=== PATIENT | female | born 1960 | race Caucasian/White ===

== ENCOUNTER 2016-05-16 23:35 | Emergency (ER) | payer OTHER ==
[2016-05-16 23:42] VITALS: BMI 35.2
[2016-05-16 23:46] VITALS: RESP 18
--- NOTE | 2016-05-16 23:50 | ED PDOC ---
Arrival/HPI - General Chief Complaint: Abdominal Pain Time Seen by Provider: 05/16/16 23:37 Historian: Patient, Family (daughter) - History of Present Illness Narrative History of Present Illness (Text): 05/16/16 23:50 55 year old female patient, whose past medical history includes diabetes, hypertension, hypercholesterolemia, and breast cancer currently in remission, who presents to the emergency department brought by her daughter complaining of suprapubic discomfort. Patient states she just returned from [place] today where she had a Cooper catheter placed for possible urinary retention 3 days ago. Patient describes suprapubic discomfort possibly related to the indwelling catheter. Patient denies any fever, chills, nausea, vomiting, diarrhea, back pain, neck pain, headache, dizziness, or any other complaints. PMD: Dr. Paulino Beebe Time/Duration: < week (3 days) Symptom Onset: Gradual Symptom Course: Unchanged Quality: Fullness Activities at Onset: Rest Modifying Factors (Text): None Past Medical History - Provider Review Nursing Documentation Reviewed: Yes - Infectious Disease Hx of Infectious Diseases: None - Tetanus Immunization Tetanus Immunization: Unknown - Reproductive Menopause: Yes - Cardiac Hx Cardiac Disorders: Yes Hx Hypertension: Yes - Pulmonary Hx Respiratory Disorders: No - Neurological Hx Neurological Disorder: No - HEENT Hx HEENT Disorder: No - Renal Hx Renal Disorder: No - Endocrine/Metabolic Hx Endocrine Disorders: Yes Hx Diabetes Mellitus Type 2: Yes - Hematological/Oncological Hx Blood Disorders: Yes Hx Cancer: Yes (stage 1 l breast RADIATION) - Integumentary Hx Dermatological Disorder: No - Musculoskeletal/Rheumatological Hx Musculoskeletal Disorders: No - Gastrointestinal Hx Gastrointestinal Disorders: No - Genitourinary/Gynecological Hx Genitourinary Disorders: No - Psychiatric Hx Psychophysiologic Disorder: No - Surgical History Hx Breast Biopsy: Yes (LOCAL ANESTHESIA. 07/04/13 EXC LEFT BREAST MASS) Hx Mastectomy: Yes (LEFT BREAST LUMPECTOMY) - Anesthesia Hx Anesthesia: Yes Hx Anesthesia Reactions: No Hx Malignant Hyperthermia: No Family/Social History - Physician Review Nursing Documentation Reviewed: Yes Family/Social History: Unknown Family HX Smoking Status: Never Smoked Hx Alcohol Use: No Allergies/Home Meds Allergies/Adverse Reactions: Allergies Penicillins Allergy (Verified 12/18/15 11:45) Home Medications: Home Meds Medication Instructions Recorded Confirmed GlipiZIDE [Glucotrol] 5 mg PO BID 06/07/13 01/13/16 Olmesartan Medoxomil [Benicar] 40 mg PO DAILY 06/29/13 01/13/16 Simvastatin 40 mg PO DAILY 06/29/13 01/13/16 Sitagliptin Phosphate [Januvia] 150 mg PO BID 10/04/13 01/13/16 Olmesartan [BenicarNf] 20 mg PO 01/13/16 Review of Systems - Physician Review All systems were reviewed & negative as marked: Yes - Review of Systems Respiratory: absent: SOB Cardiovascular: absent: Chest Pain Gastrointestinal: Abdominal Pain Genitourinary Female: Other (+urinary retention) Skin: absent: Rash Physical Exam Vital Signs Reviewed: Yes Vital Signs Temp Pulse Resp BP Pulse Ox 05/17/16 02:50 82 18 120/76 98 05/16/16 23:42 97.3 F L 77 18 117/79 99 Temperature: Afebrile Blood Pressure: Normal Pulse: Regular Respiratory Rate: Normal Appearance: Positive for: Well-Appearing, Non-Toxic, Comfortable Pain Distress: None Mental Status: Positive for: Alert and Oriented X 3 - Systems Exam Head: Present: Atraumatic, Normocephalic Pupils: Present: PERRL Extroacular Muscles: Present: EOMI Conjunctiva: Present: Normal Mouth: Present: Moist Mucous Membranes Neck: Present: Normal Range of Motion Respiratory/Chest: Present: Clear to Auscultation, Good Air Exchange. No: Respiratory Distress, Accessory Muscle Use Cardiovascular: Present: Regular Rate and Rhythm, Normal S1, S2. No: Murmurs Abdomen: Present: Tenderness (suprapubic tenderness), Normal Bowel Sounds. No: Distention, Peritoneal Signs Back: Present: Normal Inspection Upper Extremity: Present: Normal Inspection. No: Cyanosis, Edema Lower Extremity: Present: Normal Inspection. No: Edema Neurological: Present: GCS=15, CN II-XII Intact, Speech Normal Skin: Present: Warm, Dry, Normal Color. No: Rashes Psychiatric: Present: Alert, Oriented x 3, Normal Insight, Normal Concentration Medical Decision Making ED Course and Treatment: 05/16/16 23:50 Impression: 55 year old female with suprapubic pain. Differential Diagnosis included but are not limited to: Urinary retention Vs. UTI Plan: -- Labs -- Reassess and disposition Prior Visits: Notes and results from previous visits were reviewed. On 10/04/13 patient came in complaining of L. sided upper chest pain that feels like pressure. Patient was admitted for further evaluation. Progress Notes: 05/17/16 00:25 Patient reports complete relief following immediate Cooper removal. Pt was able to urinate on her own with difficulty. 05/17/16 03:18 Uneventful period of observation in ED following Cooper removal. No recurrence of symptoms. On re-evaluation, the patient feels better and is in no acute distress. I have discussed the results and plan with the patient, who expresses understanding. Patient in agreement with plan to discharged home. Patient is stable for discharge. Patient was instructed to follow up with physician/clinic in 1-2 days or return if symptoms worsen or new concerning symptoms arise. - Lab Interpretations Lab Results: 05/17/16 00:41 05/17/16 00:41 Lab Results 05/17/16 00:41: WBC 7.7, RBC 3.95, Hgb 10.9 L, Hct 32.7 L, MCV 82.8, MCH 27.6, MCHC 33.3, RDW 15.9 H, Plt Count 260, MPV 9.9, Sodium 133, Potassium 4.4, Chloride 99, Carbon Dioxide 26, Anion Gap 12, BUN 13, Creatinine 0.9, Est GFR ( Amer) > 60, Est GFR (Non-Af Amer) > 60, Random Glucose 252 H, Calcium 9.0 05/17/16 00:06: Urine Color Yellow, Urine Appearance Clear, Urine pH 6.5, Ur Specific [place] <= 1.005, Urine Protein Negative, Urine Glucose (UA) Negative, Urine Ketones Negative, Urine Blood Trace-lysed H, Urine Nitrate Negative, Urine Bilirubin Negative, Urine Urobilinogen 0.2, Ur Leukocyte Esterase Negative , Urine RBC 0 - 2, Urine WBC 0 - 2, Ur Epithelial Cells 0 - 2, Urine Bacteria Rare I have reviewed the lab results: Yes - Scribe Statement The provider has reviewed the documentation as recorded by the Scribwander Mcclellan, training with Lakeisha Couch All medical record entries made by the Scribe were at my direction and personally dictated by me. I have reviewed the chart and agree that the record accurately reflects my personal performance of the history, physical exam, medical decision making, and the department course for this patient. I have also personally directed, reviewed, and agree with the discharge instructions and disposition. Disposition/Present on Arrival - Present on Arrival Any Indicators Present on Arrival: No History of DVT/PE: No History of Uncontrolled Diabetes: No Urinary Catheter: No History of Decub. Ulcer: No History Surgical Site Infection Following: None - Disposition Have Diagnosis and Disposition been Completed?: Yes Diagnosis: Complication, blocked Cooper catheter Disposition: HOME/ ROUTINE Disposition Time: 03:17 Patient Plan: Discharge Patient Problems: Current Active Problems Problem Status Diagnosed Complication, blocked Cooper catheter Acute Condition: GOOD Additional Instructions: Follow up with your doctor this week Referrals: Ramya Beebe MD [Primary Care Provider] - Follow up with primary
[2016-05-17 00:30] VITALS: TEMP 97.3
[2016-05-17 00:58] LABS: HEMATOCRIT 32.7 % (36.0-48.0); MEAN CELL VOLUME 82.8 fL (80.0-105.0); MEAN CORPUSCULAR HEMOGLOBIN 27.6 pg (25.0-35.0); MEAN CORPUSCULAR HGB CONC 33.3 g/dl (31.0-37.0); MEAN PLATELET VOLUME 9.9 fl (7.0-11.0); RED CELL DISTRIBUTION WIDTH 15.9 % (11.5-14.5); WHITE BLOOD COUNT 7.7 [, 10^3/ul] (4.5-11.0)
[2016-05-17 01:22] LABS: BLOOD UREA NITROGEN 13 mg/dL (7-21); CARBON DIOXIDE 26 mmol/L (21-33); CHLORIDE 99 mmol/L (98-107); GFR AFRICAN-AMERICAN > 60; GLUCOSE,RANDOM 252 mg/dL (70-110); POTASSIUM 4.4 mmol/L (3.6-5.0); SODIUM 133 mmol/L (132-148)
[2016-05-17 02:13] LABS: PH,URINE 6.5 (4.7-8.0); URINE BILIRUBIN NEGATIVE (NEGATIVE); URINE BLOOD TRACE-LYSED (NEGATIVE); URINE GLUCOSE (UA) NEGATIVE (NEGATIVE); URINE KETONE NEGATIVE (NEGATIVE); URINE LEUKOCYTE ESTERASE NEGATIVE Leu/uL (NEGATIVE); URINE PROTEIN NEGATIVE mg/dL (<30 mg/dL); URINE UROBILINOGEN 0.2 E.U./dL (<1 E.U./dL)
[2016-05-17 02:18] LABS: URINE APPEARANCE CLEAR (CLEAR); URINE COLOR YELLOW (YELLOW)
[2016-05-17 02:25] LABS: URINE BACTERIA RARE (NEG); URINE EPITHELIAL CELLS 0 - 2 /hpf (0-5); URINE RBC 0 - 2 /hpf (0-2); URINE WBC 0 - 2 /hpf (0-6)
[2016-05-17 02:50] VITALS: BP 120/76; PULSE 82; O2SAT 98
== END 2016-05-17 03:20 | disposition home or self-care (01) ==
LOC: ED 23:35
DX: T83.098A Other mechanical complication of other urinary catheter, initial encounter (principal); Y84.8 Other medical procedures as the cause of abnormal reaction of the patient, or of later complication, without mention of misadventure at the time of the procedure; Y92.89 Other specified places as the place of occurrence of the external cause; I10 Essential (primary) hypertension

== ENCOUNTER 2017-07-02 17:14 | Inpatient (IN) | payer OTHER ==
[2017-07-02 17:15] VITALS: BMI 35.6
[2017-07-02] MEDS ORDERED: Morphine 4 mg/ml ISec IVP STA (17:32)
[2017-07-02 18:22] LABS: BASO # 0.02 K/mm3 (0.0-2.0); BASO % 0.2 % (0.0-3.0); EOS # 0.4 (0.0-0.7); EOS % 4.8 % (1.5-5.0); GRAN # 4.56 (1.4-6.5); GRAN % 49.7 % (50.0-68.0); HEMOGLOBIN 12.9 g/dL (12.0-16.0); LYMPH # 3.7 (1.2-3.4); LYMPH % 40.6 % (22.0-35.0); MEAN CELL VOLUME 83.8 fl (80.0-105.0); MEAN CORPUSCULAR HEMOGLOBIN 28.7 pg (25.0-35.0); MEAN CORPUSCULAR HGB CONC 34.2 g/dl (31.0-37.0); MEAN PLATELET VOLUME 10.9 fl (7.0-11.0); MONO # 0.4 (0.1-0.6); MONO % 4.7 % (1.0-6.0); RBC 4.5 10^6/uL (3.5-6.1); RED CELL DISTRIBUTION WIDTH 14.7 % (11.5-14.5); WHITE BLOOD COUNT 9.2 10^3/ul (4.5-11.0)
[2017-07-02 18:25] LABS: ALB/GLOB RATIO 1.2 (1.1-1.8); ALBUMIN 4.1 g/dL (3.0-4.8); ALT/SGPT 26 U/L (7-56); AST/SGOT 29 U/L (14-36); BLOOD UREA NITROGEN 20 mg/dL (7-21); CALCIUM 10.3 mg/dL (8.4-10.5); GFR AFRICAN-AMERICAN > 60; GFR NON-AFRICAN AMERICAN > 60
[2017-07-02 18:35] LABS: INR 0.95 (0.93-1.08); PARTIAL THROMBOPLASTIN TIME 25.2 Seconds (25.1-36.5); PROTHROMBIN TIME 10.8 SECONDS (9.4-12.5)
[2017-07-02 18:36] LABS: PH,URINE 6.5 (4.7-8.0); URINE BILIRUBIN NEGATIVE (NEGATIVE); URINE BLOOD NEGATIVE (NEGATIVE); URINE GLUCOSE (UA) NEGATIVE (NEGATIVE); URINE LEUKOCYTE ESTERASE NEGATIVE Leu/uL (NEGATIVE); URINE PROTEIN NEGATIVE mg/dL (<30 mg/dL); URINE UROBILINOGEN 0.2 E.U./dL (<1 E.U./dL)
[2017-07-02 18:37] LABS: URINE APPEARANCE CLEAR (CLEAR); URINE COLOR STRAW (YELLOW)
--- NOTE | 2017-07-02 19:03 | MRI ---
PROCEDURE: MR LUMBAR SPINE WITHOUT CONTRAST HISTORY: Back pain COMPARISON: None available. TECHNIQUE: Multiecho multiplanar sequences were performed through the lumbar spine without the use of intravenous contrast. FINDINGS: No acute compression fractures no retropulsed fragments. Vertebral bodies exhibit normal stature. Marrow signal normal. Minimal anterior subluxation L5 over S1. . Vertebral bodies otherwise exhibit normal alignment. Facets normally aligned. T12-L1: No disc herniation, spinal canal stenosis or neural foraminal narrowing. L1-2: No disc herniation, spinal canal stenosis or neural foraminal narrowing. L2-3: No disc herniation, spinal canal stenosis or neural foraminal narrowing. L3-4: There is adequate disc height. Minor age related disc desiccation. No minor the shallow bilateral foraminal disc bulging changes are present. Facet joints do appear mild to moderately hypertrophic. . Central canal appears adequate. Exit foramina are also adequate. L4-5: . There is relatively adequate disc height however mild disc desiccation with an associated annular fissure seen along the central posterior margin of the disc. Disc results in mild compressive effects on the ventral surface of the thecal sac more so on the right side with mild bilateral lateral recess narrowing again more so on the right. Central canal is marginal to slightly narrowed. Facet joints are mildly hypertrophic. Proximal exit foramina are marginal to slightly narrowed bilaterally. . L5-S1: There is mild disc desiccation and disc space narrowing along the posterior disc margin in addition to the aforementioned minimal anterior subluxation. . Slight uncovering of the posterior superior surface of the disc with minimal broad-based bulge of the posterior annulus. The the disc flattens the ventral surface of the thecal sac and results in mild bilateral lateral recess narrowing. The central canal is mildly narrowed as well. Facets are hypertrophic and flavum buckled contributing to the the bilateral lateral recess stenosis. The exit foramina are narrowed bilaterally. OTHER FINDINGS: Conus terminates at approximately the upper L1 level. IMPRESSION: Mild multilevel degenerative spondylosis most notably affecting the L5-S1 and L4-L5 levels as described.
--- NOTE | 2017-07-02 19:17 | ED PDOC ---
Arrival/HPI - General Chief Complaint: Back Pain Time Seen by Provider: 07/02/17 17:19 Historian: Patient - History of Present Illness Narrative History of Present Illness (Text): 07/02/17 19:14 57-year-old female presents today sent in by Dr. Beebe for intractable back pain. Patient with a history of breast cancer and uterine cancer presents today with a one-week history of worsening back pain. Patient denies chest pain or shortness of breath. She denies abdominal pain. She denies nausea vomiting diarrhea or constipation. Patient denies bladder or bowel incontinence. Patient denies saddle paresthesias. Patient is complaining of a tingling sensation in the right foot. Patient states she feels severe pain in the right lower back and hip radiating into the right thigh along the posterior aspect. Patient states she's been taking multiple medications for pain at home without improvement. Patient states she was seen by a primary care physician today and was sent into the emergency room for further evaluation. Time/Duration: 1 week Symptom Onset: Gradual Symptom Course: Worsening Past Medical History - Provider Review Nursing Documentation Reviewed: Yes - Travel History Have you recently traveled outside [place] w/in the past 3 mons?: No - Infectious Disease Hx of Infectious Diseases: None - Tetanus Immunization Tetanus Immunization: Unknown - Cardiac Hx Cardiac Disorders: Yes Hx Hypertension: Yes - Pulmonary Hx Respiratory Disorders: No - Neurological Hx Neurological Disorder: No - HEENT Hx HEENT Disorder: No - Renal Hx Renal Disorder: No - Endocrine/Metabolic Hx Endocrine Disorders: Yes Hx Diabetes Mellitus Type 2: Yes - Hematological/Oncological Hx Blood Disorders: Yes Hx Cancer: Yes (stage 1 l breast RADIATION) - Integumentary Hx Dermatological Disorder: No - Musculoskeletal/Rheumatological Hx Musculoskeletal Disorders: No - Gastrointestinal Hx Gastrointestinal Disorders: No - Genitourinary/Gynecological Hx Genitourinary Disorders: No - Psychiatric Hx Psychophysiologic Disorder: No Hx Substance Use: No - Surgical History Hx Breast Biopsy: Yes (LOCAL ANESTHESIA. 07/04/13 EXC LEFT BREAST MASS) Hx Mastectomy: Yes (LEFT BREAST LUMPECTOMY) - Anesthesia Hx Anesthesia: Yes Hx Anesthesia Reactions: No Hx Malignant Hyperthermia: No Family/Social History - Physician Review Nursing Documentation Reviewed: Yes Family/Social History: Unknown Family HX Smoking Status: Never Smoked Hx Alcohol Use: No Hx Substance Use: No Allergies/Home Meds Allergies/Adverse Reactions: Allergies Penicillins Allergy (Verified 12/18/15 11:45) Home Medications: Home Meds Medication Instructions Recorded Confirmed GlipiZIDE [Glucotrol] 5 mg PO BID 06/07/13 07/02/17 Simvastatin 40 mg PO DAILY 06/29/13 07/02/17 Olmesartan [BenicarNf] 20 mg PO DAILY 01/13/16 07/02/17 Aspirin [Aspirin Chewable] 1 tab PO DAILY 07/02/17 07/02/17 Sitagliptin Phos/Metformin HCl 1 tab PO BID 07/02/17 07/02/17 [Janumet 50-1,000 mg Tablet] Tamoxifen Citrate [Tamoxifen 1 tab PO DAILY 07/02/17 07/02/17 Citrate] Review of Systems - Review of Systems Constitutional: absent: Fatigue, Fevers Respiratory: absent: SOB, Cough Cardiovascular: absent: Chest Pain, Palpitations Gastrointestinal: absent: Abdominal Pain, Constipation, Diarrhea, Nausea, Vomiting Genitourinary Female: absent: Dysuria, Frequency, Hematuria, Urine Output Changes, Vaginal Bleeding, Vaginal Discharge Musculoskeletal: Arthralgias, Back Pain. absent: Neck Pain Skin: absent: Rash, Pruritis Neurological: absent: Headache, Dizziness Psychiatric: absent: Anxiety, Depression, Suicidal Ideation Physical Exam Vital Signs Reviewed: Yes Vital Signs Temp Pulse Resp BP Pulse Ox 07/02/17 17:14 97.7 F 88 18 156/82 H 98 Temperature: Afebrile Blood Pressure: Hypertensive Pulse: Regular Respiratory Rate: Normal Appearance: Positive for: Well-Appearing, Non-Toxic, Uncomfortable Pain Distress: None Mental Status: Positive for: Alert and Oriented X 3 - Systems Exam Head: Present: Atraumatic Mouth: Present: Moist Mucous Membranes Neck: Present: Normal Range of Motion Respiratory/Chest: Present: Clear to Auscultation, Good Air Exchange. No: Respiratory Distress, Accessory Muscle Use Cardiovascular: Present: Regular Rate and Rhythm, Normal S1, S2. No: Murmurs Abdomen: No: Tenderness, Distention, Peritoneal Signs, Rebound, Guarding Back: Present: Normal Inspection, Midline Tenderness, Paraspinal Tenderness Upper Extremity: Present: Normal Inspection, Normal ROM Lower Extremity: Present: NORMAL PULSES, Swelling, Neurovascularly Intact, Capillary Refill < 2 s. No: CALF TENDERNESS, Tenderness, Erythema, Deformity Neurological: Present: GCS=15, Speech Normal Skin: Present: Warm, Dry, Normal Color. No: Rashes Psychiatric: Present: Alert, Oriented x 3 Medical Decision Making ED Course and Treatment: 07/02/17 19:20 57-year-old female with a one-week history of worsening right sided back pain radiating into the right leg sent in by Dr. Beebe for admission for intractable pain CBC within normal limits CMP within normal limits Urinalysis within normal limits Patient presents with a CAT scan of the lumbar spine which shows a large disc bulge with facet degeneration and thickening of the ligamentum flavum at L4-L5 causing moderate to severe narrowing of the central spinal canal and both lateral recesses. MRI of the lumbar spine was ordered MRI of lumbar spine:FINDINGS: No acute compression fractures no retropulsed fragments. Vertebral bodies exhibit normal stature. Marrow signal normal. Minimal anterior subluxation L5 over S1. . Vertebral bodies otherwise exhibit normal alignment. Facets normally aligned. T12-L1: No disc herniation, spinal canal stenosis or neural foraminal narrowing. L1-2: No disc herniation, spinal canal stenosis or neural foraminal narrowing. L2-3: No disc herniation, spinal canal stenosis or neural foraminal narrowing. L3-4: There is adequate disc height. Minor age related disc desiccation. No minor the shallow bilateral foraminal disc bulging changes are present. Facet joints do appear mild to moderately hypertrophic. Central canal appears adequate. Exit foramina are also adequate. L4-5: . There is relatively adequate disc height however mild disc desiccation with an associated annular fissure seen along the central posterior margin of the disc. Disc results in mild compressive effects on the ventral surface of the thecal sac more so on the right side with mild bilateral lateral recess narrowing again more so on the right. Central canal is marginal to slightly narrowed. Facet joints are mildly hypertrophic. Proximal exit foramina are marginal to slightly narrowed bilaterally. . L5-S1: There is mild disc desiccation and disc space narrowing along the posterior disc margin in addition to the aforementioned minimal anterior subluxation. . Slight uncovering of the posterior superior surface of the disc with minimal broad-based bulge of the posterior annulus. The the disc flattens the ventral surface of the thecal sac and results in mild bilateral lateral recess narrowing. The central canal is mildly narrowed as well. Facets are hypertrophic and flavum buckled contributing to the the bilateral lateral recess stenosis. The exit foramina are narrowed bilaterally. OTHER FINDINGS: Conus terminates at approximately the upper L1 level. IMPRESSION: Mild multilevel degenerative spondylosis most notably affecting the L5-S1 and L4 -L5 levels as described. case was discussed with dr. beebe; will admit for intractable back pain; she is requesting neurosurgery consultation. i discussed all results in depth with patient. impression;intractable back pain admit to med/surg - Lab Interpretations Lab Results: 07/02/17 18:00 07/02/17 18:00 Lab Results 07/02/17 18:29: Urine Color Straw, Urine Appearance Clear, Urine pH 6.5, Ur Specific [place] <= 1.005, Urine Protein Negative, Urine Glucose (UA) Negative, Urine Ketones Negative, Urine Blood Negative, Urine Nitrate Negative, Urine Bilirubin Negative, Urine Urobilinogen 0.2, Ur Leukocyte Esterase Negative 07/02/17 18:00: WBC 9.2, RBC 4.50, Hgb 12.9, Hct 37.7, MCV 83.8, MCH 28.7, MCHC 34.2, RDW 14.7 H, Plt Count 240, MPV 10.9, Gran % 49.7 L, Lymph % (Auto) 40.6 H , [place] % (Auto) 4.7, Eos % (Auto) 4.8, Baso % (Auto) 0.2, Gran # 4.56, Lymph # ( Auto) 3.7 H, [place] # (Auto) 0.4, Eos # (Auto) 0.4, Baso # (Auto) 0.02 07/02/17 18:00: Sodium 141, Potassium 4.8, Chloride 102, Carbon Dioxide 26, Anion Gap 18, BUN 20, Creatinine 0.8, Est GFR ( Amer) > 60, Est GFR (Non- Af Amer) > 60, Random Glucose 133 H, Calcium 10.3, Total Bilirubin 0.2, AST 29, ALT 26, Alkaline Phosphatase 81, Total Protein 7.4, Albumin 4.1, Globulin 3.3, Albumin/Globulin Ratio 1.2 07/02/17 18:00: PT 10.8, INR 0.95, APTT 25.2 - RAD Interpretation Radiology Orders: 07/02/17 17:37 SPINAL CANAL LUMBAR W/O CONT [MRI] Stat - Medication Orders Current Medication Orders: Discontinued Medications Docusate Sodium (Colace) 100 mg PO STAT STA Stop: 07/02/17 17:33 Last Admin: 07/02/17 17:48 Dose: 100 mg Last Bowel Movement Document 07/02/17 17:48 LA (Rec: 07/02/17 17:48 LA [id number]) Last Bowel Movement Last Bowel Movement 07/01/17 Morphine Sulfate (Morphine) 4 mg IVP STAT STA Stop: 07/02/17 17:33 Last Admin: 07/02/17 17:48 Dose: 4 mg MAR Pain Assessment Document 07/02/17 17:48 LA (Rec: 07/02/17 17:49 LA [id number]) Pain Reassessment Is this a pain reassessment? No Sleep Is patient sleeping during reassessment? No Presence of Pain Presence of Pain Yes Pain Scale Used Pain Scale Used Numeric Location Left, Right or Bilateral Right Upper or Lower Lower Pain Location Body Site Back Leg Description Description Constant Intensity of Pain at present 10 Pain Behavior Guarding IVP Administration Document 07/02/17 17:48 LA (Rec: 07/02/17 17:49 LA [id number]) Charges for Administration # of IVP Administrations 1 Ondansetron HCl (Zofran Inj) 4 mg IVP STAT STA Stop: 07/02/17 17:33 Last Admin: 07/02/17 17:49 Dose: 4 mg IVP Administration Document 07/02/17 17:49 LA (Rec: 07/02/17 17:49 LA [id number]) Charges for Administration # of IVP Administrations 1 Disposition/Present on Arrival - Present on Arrival Any Indicators Present on Arrival: No History of DVT/PE: No History of Uncontrolled Diabetes: No Urinary Catheter: No History of Decub. Ulcer: No History Surgical Site Infection Following: None - Disposition Have Diagnosis and Disposition been Completed?: Yes Diagnosis: Intractable back pain Disposition: HOSPITALIZED Disposition Time: 19:00 Patient Plan: Admission, Observation Condition: GOOD Referrals: Ramya Beebe MD [Primary Care Provider] - Follow up with primary
[2017-07-03] MEDS: Insulin Reg-LOW-Coverage SC SCH ×4 (08:15→22:18)
[2017-07-03] MEDS: Lidocaine 5% Patch TOP SCH (09:49)
[2017-07-03] MEDS: MethylPREDNISolone 40 mg Vial IVP SCH ×2 (09:50→22:37)
[2017-07-03] MEDS ORDERED: POLYETHYLENE GLYCOL 3350 17 GM/Dose PACKET PO ONE (16:20)
[2017-07-04] MEDS: Insulin Reg-LOW-Coverage SC SCH ×3 (08:43→16:52)
[2017-07-04] MEDS: MethylPREDNISolone 40 mg Vial IVP SCH ×2 (10:44→21:40)
[2017-07-04] MEDS: POLYETHYLENE GLYCOL 3350 17 GM/Dose PACKET PO SCH (10:47)
[2017-07-04] MEDS: Lidocaine 5% Patch TOP SCH (10:47)
[2017-07-04] MEDS: Insulin Reg-MEDIUM-Coverage SC SCH (21:39)
--- NOTE | 2017-07-04 22:43 | PN ---
DATE: 07/04/2017 SUBJECTIVE: The patient was seen and examined at the bedside, looking comfortable. Pain is a little bit better, but did not have bowel movement. No nausea or vomiting. No headache. No chest pain. No palpitation. PHYSICAL EXAMINATION: VITAL SIGNS: Temperature 97.9, pulse 53, blood pressure 143/92, respiratory rate 20. HEENT: Head normocephalic, atraumatic. Eyes PERRLA. Extraocular muscles intact. Conjunctivae clear. Nose patent. Mucous membranes moist. NECK: Supple. No carotid bruit. No JVD or thyromegaly. CHEST: Bilaterally symmetrical. HEART: S1 and S2 positive. LUNGS: Clear to auscultation. ABDOMEN: Soft. Bowel sounds positive. No organomegaly. EXTREMITIES: No edema. No cyanosis. NEUROLOGIC: The patient is awake and alert. Moving all four extremities. No focal deficit. MEDICATIONS: Aspirin, Cozaar, Duragesic patch, metformin, Glucotrol, insulin, Januvia, lidocaine, Lipitor, MiraLax, tamoxifen, Pepcid, Solu-Medrol tapering dose, Toradol, Tylenol, and Zofran. LABORATORY DATA: White blood cells 9.2, hemoglobin 12.9, hematocrit 37.7, platelets 240. Glucose 230, 389, 279, and 317. ASSESSMENT AND PLAN: Ms. Sandra Nicolas is a 57-year-old female with uncontrolled diabetes mellitus, getting tapering dose of steroids, obesity, intractable back pain, failed outpatient treatment. The patient was using naproxen and Flexeril but nothing was helping. Tingling sensation in the legs, especially right foot and leg, numbness of the leg, but is improving. Lumbosacral radiculopathy, history of stage I breast cancer status post radiation, left breast lumpectomy, hypertension, hypercholesterolemia. Did MRI of lumbosacral region. Mild multilevel degenerative spondylosis, most notably affecting the L5-S1 and L4-L5 level. There is mild disk desiccation and disk space narrowing. GI and deep venous thrombosis prophylaxis. Getting tapering dose of steroids. Seen by neurosurgeon, Recommended physical therapy. Ramya Beebe MD [facility] # [id number] [place]
[2017-07-05 07:34] LABS: HEMOGLOBIN 11.7 g/dL (12.0-16.0); MEAN CELL VOLUME 84.2 fl (80.0-105.0); MEAN CORPUSCULAR HEMOGLOBIN 27.7 pg (25.0-35.0); MEAN CORPUSCULAR HGB CONC 32.9 g/dl (31.0-37.0); MEAN PLATELET VOLUME 11.2 fl (7.0-11.0); RBC 4.23 10^6/uL (3.5-6.1); RED CELL DISTRIBUTION WIDTH 14.9 % (11.5-14.5); WHITE BLOOD COUNT 10.9 10^3/ul (4.5-11.0)
[2017-07-05 07:45] LABS: IRON 64 ug/dL (45-180)
[2017-07-05 07:53] LABS: BLOOD UREA NITROGEN 41 mg/dL (7-21); CALCIUM 9.7 mg/dL (8.4-10.5); GFR AFRICAN-AMERICAN > 60; GFR NON-AFRICAN AMERICAN 57; HDL CHOLESTEROL 84 mg/dL (29-60)
[2017-07-05 07:56] LABS: % IRON SATURATION 16 % (20-55); LDL CHOLESTEROL 66 mg/dL (0-129); TOTAL IRON BINDING CAPACITY 395 ug/dL (265-497)
--- NOTE | 2017-07-05 08:07 | CON ---
DATE: 07/03/2017 REASON FOR CONSULTATION: Intractable back pain. HISTORY OF PRESENT ILLNESS: Patient is a 57-year-old young woman who states that a week ago, she had the acute onset of pain in her lower back. She denies any past history of back issues. She does not recall any trauma or any excess activity leading up to the onset of this pain. It is strictly on the right side around the lower back/buttock region. Occasionally, she gets some radiation into the upper thigh on the outside and the back of it, but not in front of her leg. She denies any loss of bowel or bladder control. She denies any symptoms whatsoever in the left leg. She was unable to manage the pain as outpatient, and therefore was brought to the emergency room yesterday and admitted. She had a CAT scan, and subsequently an MRI done. She states she feels a little better with the medications that she is getting, but when the medicine wears off, then the symptoms recur. PAST MEDICAL HISTORY: Significant for cardiovascular disease with hypertension. She is type 2 diabetic, non-insulin dependent. She also has a history of stage I breast cancer in the left breast. MEDICATIONS: Are as listed on the chart. ALLERGIES: SHE IS ALLERGIC TO PENICILLIN. PAST SURGICAL HISTORY: Significant for lumpectomy done in 06/2013 for the left breast. She had subsequent radiation therapy, but did not need any other adjuvant treatments, and she states everything has been fine for the last 4 years. REVIEW OF SYSTEMS: She is Hinduism, so she has never smoked and never taken any alcohol. PHYSICAL EXAMINATION: She is very tender to palpation around the right sciatic notch and lower lumbosacral region. Straight leg raising on the right side at about 60 degrees or so gives her right-sided low back pain. No leg symptoms. Straight leg raising is on the left side to at least 80 degrees with no complaints. She is able to move both lower extremities actively. She states her sensation is a little different to light touch over the dorsum of right foot compared to the left. She does complain of some tingling in all the toes of her right foot. Sensation to light touch in the medial and lateral aspects of the ankle, however, are the same. She has excellent strength throughout muscle testing of both legs. Reflexes are depressed, but symmetrically so. She has fair distal pulses. No clonus present. Babinski showed toes downgoing. MRI was reviewed and it shows what appears to be a large annular tear in the L4-L5 disk. There is facet hypertrophy with some thickening of ligamentum resulting in foraminal narrowing, though it is more on the left than the right. At L5-S1, she has some disk desiccation and a minimal grade I spondylolisthesis of L5 and S1. Again, she has some facet hypertrophy, thickened ligamentum resulting in some lateral recess and foraminal narrowing. There is disk desiccation at the L3-L4 disk, but it maintains good height and disk above that looks okay. IMPRESSION: My impression is that most probably internal derangement of L4-L5 disk with some stenosis of L4-L5 and L5-S1 along with a minimal spondylolisthesis of L5-S1. Given the fact this patient has never had an issue with her back before and the history now is only for a week, I would certainly treat this conservatively initially. I would get her physical therapy and let them do modality treatments and mobilize her as her pain allows. She does have some radiculitis in terms of complaints of the tingling and pain in the upper thigh, but motor-rojas, she is completely intact, so again there is no khan to do anything surgically. I would think about trying to get her off the steroids if they are only being given for back pain as that is obviously causing a subsequent rise in her sugars and now she is on insulin, and there has not been any evidence showing any significant improvement with the use of steroids compared to the side effects and complications from the use of them also. I agree with the Toradol, and again we will get her physical therapy and just see if we can mobilize as tolerated. If she is still having significant difficulties, pain management could administer a lumbar epidural and see if that would help quiet things down. Certainly, if none of this works for her, then the other solution would be to consider a 2-level lumbar fusion above the L4-L5 and L5-S1 disks in order to decompress everything and stabilize the spondylolisthesis as well as take care of the disk spondylolisthesis at L5-S1 and disk derangement at L4-L5. However, obviously, just medically with the diabetes and hypertension and everything, the surgery should be only if she has failed normal conservative care. Thank you for letting me participate in the care of your patient. Bartolo Beck MD [facility] # [id number]
[2017-07-05] MEDS: Insulin Reg-MEDIUM-Coverage SC SCH ×3 (08:12→17:41)
[2017-07-05] MEDS: POLYETHYLENE GLYCOL 3350 17 GM/Dose PACKET PO SCH (11:29)
[2017-07-05] MEDS: Lidocaine 5% Patch TOP SCH (11:29)
[2017-07-05] MEDS: MethylPREDNISolone 40 mg Vial IVP SCH ×2 (11:51→23:22)
[2017-07-05 12:42] LABS: FOLATE 7.1 ng/mL
--- NOTE | 2017-07-05 16:10 | HP ---
DATE OF EXAM: 07/04/2017 The patient is a 57-year-old female. The patient was seen and examined on the bedside CHIEF COMPLAINT: Intractable back pain, 12/01. HISTORY OF PRESENT ILLNESS: Ms. Maria Isabel Flores is a 57-year-old female with past medical history of breast cancer and uterine cancer, came through the Emergency Room with 1-week history of worsening back pain. The patient denies chest pain, shortness of breath. She denies abdominal pain. Denies nausea, vomiting or diarrhea. Actually, patient came one week ago in my office with back pain. I sent her for x-rays. She was seen by her oncologist, Dr. hoyt ordered CAT scan of the back, showed herniated disk and she was given naproxen and Flexeril, but nothing was working she has intractable back pain. Denies bladder or bowel incontinence. The patient has right-sided paresthesia. The patient is complaining of tingling sensation in the right foot. The patient states that she feels severe pain in the right lower back and hip radiating to the right thigh along the posterior aspect. The patient states that she has been taking multiple medications for pain at home without improvement and on the day of admission, again she came to see me in my office, but because of her severe pain, 12/01, I will send her to the hospital. PAST MEDICAL HISTORY: Hypertension; diabetes mellitus type 2, uncontrolled; breast cancer, local anesthesia, left breast lumpectomy. FAMILY HISTORY: Father and mother, noncontributory. HABITS: Never smoked. No drugs. No ethanol. ALLERGIES: THE PATIENT IS ALLERGIC WITH PENICILLIN. HOME MEDICATIONS: Glucotrol, simvastatin, Benicar, aspirin, Janumet and tamoxifen. REVIEW OF SYSTEMS: The patient was seen and examined on the bedside. Still having back pain. No shortness of breath. No fatigue. No fever. No chest pain. No palpitation. No abdominal pain, constipation, diarrhea, nausea or vomiting. No dysuria, frequency or hematuria. No urinary output change . No vaginal discharge or vaginal bleeding. No arthralgia, but having back pain. No rashes, pruritus. No headache. No dizziness. No anxiety, depression, or suicidal or homicidal ideation. PHYSICAL EXAMINATION: VITAL SIGNS: Temperature 97.7, pulse 88, respiratory rate 18, blood pressure 157/82, pulse oximetry 98%. HEENT: Head, normocephalic and atraumatic. Eyes, PERRLA. Extraocular muscles intact. Conjunctivae clear. Nose patent. Mucous membrane moist. NECK: Supple. No carotid bruit, JVD, or thyromegaly. CHEST: Bilaterally symmetrical. HEART: S1, S2 positive. LUNGS: Clear to auscultation. ABDOMEN: Soft. Bowel sounds present. No organomegaly. EXTREMITIES: No edema. No cyanosis. No calf tenderness. No erythema. No deformity. NEUROLOGIC: The patient is awake, alert. Moving all four extremities. No focal deficit. LABORATORY DATA: White blood cells 9.2, hemoglobin 12.9, hematocrit 37.7, platelets 240. Sodium 141, potassium 4.8, BUN 20, creatinine 0.8 and glucose 133. ASSESSMENT AND PLAN: Ms. Maria Isabel Flores is 57-year-old lady with history of breast cancer, status post lumpectomy; uncontrolled diabetes mellitus; has intractable back pain. CAT scan done as outpatient showed herniated disk. MRI done in [facility] showed mild multilevel degenerative spondylosis, most notably affecting at L5-S1, L4-L5 levels. So, the patient was admitted with intractable back pain, 4/4; lumbosacral radiculopathy. Neurosurgical consult called. Waiting for Dr. Beck's input. In the ER, they did rectal examination, within normal limit. The patient has history of breast and uterine cancer and lumpectomy, history of hypertension and obesity. We will continue pain management. Gastric and deep venous thrombosis prophylaxis. Repeat labs. We will follow up. Ramya Beebe MD [facility]
[2017-07-06] MEDS: Insulin Reg-MEDIUM-Coverage SC SCH ×5 (02:38→22:04)
--- NOTE | 2017-07-06 09:12 | RAD ---
HISTORY: Contipation COMPARISON: No prior. FINDINGS: BOWEL: Normal. No obstruction. No free air. Mild constipation BONES: Normal. OTHER FINDINGS: None. IMPRESSION: Mild constipation
[2017-07-06] MEDS: Lidocaine 5% Patch TOP SCH (10:30)
[2017-07-06] MEDS: POLYETHYLENE GLYCOL 3350 17 GM/Dose PACKET PO SCH (10:30)
[2017-07-06] MEDS: MethylPREDNISolone 40 mg Vial IVP SCH (10:31)
--- NOTE | 2017-07-06 10:44 | CP.PCM.CON ---
History of Present Illness - History of Present Illness History of Present Illness: PGY-2 GI consult note 57-year-old female with PMH of HTN, DM, stage 1 breats cancer, presents for intractable back pain. She reports one-week history of worsening back pain. Patient is complaining of a tingling sensation in the right foot. Patient states she feels severe pain in the right lower back and hip radiating into the right thigh along the posterior aspect. Ptaient reports constipation. SHe states that she had her last BM prior to hospital admission about 3 days ago. She states that normal she has a BM every day. Patient denies chest pain or shortness of breath, abdominal pain, nausea vomiting, diarrhea, bladder or bowel incontinence. Patient denies saddle paresthesias. Patient is currently on miralax and dulcolax, she was given a fleet enemia with out imporvemnt of constipation. She also was given lactulose. PMH: HTN, DM, stage 1 breats cancer PSH: left breast lumpectomy social hostory: denies smoking, alcohol use, illicit drug use allergy: penicillin Review of Systems - Review of Systems All systems: reviewed and no additional remarkable complaints except Past Patient History - Infectious Disease Hx of Infectious Diseases: None - Tetanus Immunizations Tetanus Immunization: Unknown - Past Medical History & Family History Past Medical History?: Yes - Past Social History Smoking Status: Never Smoked - CARDIAC Hx Hypertension: Yes - PULMONARY Hx Respiratory Disorders: No - NEUROLOGICAL Hx Neurological Disorder: No - HEENT Hx HEENT Problems: No - RENAL Hx Chronic Kidney Disease: No - ENDOCRINE/METABOLIC Hx Diabetes Mellitus Type 2: Yes - HEMATOLOGICAL/ONCOLOGICAL Hx Blood Disorders: Yes Hx Cancer: Yes (stage 1 l breast RADIATION) - INTEGUMENTARY Hx Dermatological Problems: No - MUSCULOSKELETAL/RHEUMATOLOGICAL Hx Musculoskeletal Disorders: No Hx Falls: No - GASTROINTESTINAL Hx Gastrointestinal Disorders: No - GENITOURINARY/GYNECOLOGICAL Hx Genitourinary Disorders: No - PSYCHIATRIC Hx Psychophysiologic Disorder: No Hx Substance Use: No - SURGICAL HISTORY Hx Mastectomy: Yes (LEFT BREAST LUMPECTOMY) - ANESTHESIA Hx Anesthesia: Yes Hx Anesthesia Reactions: No Hx Malignant Hyperthermia: No Meds Allergies/Adverse Reactions: Allergies Allergy/AdvReac Type Severity Reaction Status Date / Time Penicillins Allergy Verified 12/18/15 11:45 - Medications Medications: Current Medications Acetaminophen (Tylenol 325mg Tab) 650 mg PO Q4H PRN PRN Reason: pain fever Amlodipine Besylate (Norvasc) 10 mg PO DAILY [facility] Aspirin (Aspirin Chewable) 81 mg PO DAILY [facility] Last Admin: 07/05/17 11:29 Dose: 81 mg Atorvastatin Calcium (Lipitor) 20 mg PO DIN [facility] Last Admin: 07/05/17 17:41 Dose: 20 mg Bisacodyl (Dulcolax) 10 mg RC DAILY PRN PRN Reason: Constipation Last Admin: 07/05/17 11:30 Dose: 10 mg Famotidine (Pepcid) 40 mg PO HS [facility] Last Admin: 07/05/17 23:21 Dose: 40 mg Fentanyl (Duragesic) 1 patch TD Q72H [facility] Last Admin: 07/04/17 10:47 Dose: 1 patch Glipizide (Glucotrol) 5 mg PO BID [facility] Last Admin: 07/05/17 17:41 Dose: 5 mg Insulin Human Regular (Humulin R Med) 0 units SC ACHS [facility] PRN Reason: Protocol Last Admin: 07/06/17 07:01 Dose: 1 units Ketorolac Tromethamine (Toradol) 30 mg IVP Q6 [facility] Last Admin: 07/06/17 08:22 Dose: 30 mg Lidocaine (Lidoderm) 1 ea TOP DAILY [facility] Last Admin: 07/05/17 11:29 Dose: 1 ea Losartan Potassium (Cozaar) 100 mg PO DAILY [facility] Last Admin: 07/05/17 11:29 Dose: 100 mg Metformin HCl (Glucophage) 1,000 mg PO BID [facility] Last Admin: 07/05/17 17:41 Dose: 1,000 mg Methylprednisolone (Solu-Medrol) 20 mg IVP Q12 [facility] Last Admin: 07/05/17 23:22 Dose: 20 mg Ondansetron HCl (Zofran Inj) 4 mg IVP Q6 PRN PRN Reason: Nausea/Vomiting Last Admin: 07/05/17 18:21 Dose: 4 mg Polyethylene Glycol (Miralax) 17 gm PO DAILY [facility] Last Admin: 07/05/17 11:29 Dose: 17 gm Sitagliptin Phosphate (Januvia) 50 mg PO BID [facility] Last Admin: 07/05/17 17:47 Dose: 50 mg Tamoxifen Citrate (Nolvadex) 20 mg PO DAILY [facility] Last Admin: 07/05/17 11:30 Dose: 20 mg Physical Exam - Constitutional Appears: Well, No Acute Distress - Head Exam Head Exam: ATRAUMATIC, NORMOCEPHALIC - Eye Exam Eye Exam: EOMI, Normal appearance - ENT Exam ENT Exam: Mucous Membranes Moist - Respiratory Exam Respiratory Exam: Clear to Auscultation Bilateral, NORMAL BREATHING PATTERN. absent: Decreased Breath Sounds, Rales, Rhonchi, Wheezes, Respiratory Distress - Cardiovascular Exam Cardiovascular Exam: REGULAR RHYTHM, +S1, +S2. absent: Bradycardia, Tachycardia , Diastolic murmur, Systolic Murmur - GI/Abdominal Exam GI & Abdominal Exam: Normal Bowel Sounds, Soft. absent: Distended, Firm, Guarding, Hypoactive Bowel Sounds, Tenderness - Extremities Exam Extremities exam: Positive for: normal inspection. Negative for: pedal edema, tenderness - Neurological Exam Neurological exam: Alert - Skin Skin Exam: Dry, Intact, Normal Color, Warm Results - Vital Signs Recent Vital Signs: Last Vital Signs Temp 97.9 F 07/06/17 06:00 Pulse 89 07/06/17 06:00 Resp 20 07/06/17 06:00 BP 160/88 H 07/06/17 07:03 Pulse Ox 97 07/06/17 06:00 - Labs Result Diagrams: 07/05/17 07:00 07/05/17 07:00 Labs: Laboratory Results - last 24 hr 07/05/17 07/05/17 07/05/17 07:00 07:00 11:26 POC Glucose (mg/dL) 251 H Hemoglobin A1c 9.8 H Vitamin B12 554 Folate 7.1 07/05/17 07/05/17 07/06/17 15:42 22:21 06:42 POC Glucose (mg/dL) 280 H 256 H 373 H Hemoglobin A1c Vitamin B12 Folate Assessment & Plan - Assessment and Plan (Free Text) Assessment: 57-year-old female with PMH of HTN, DM, stage 1 breats cancer, presents for intractable back pain, GI consulted for constipation without improvement after fleet enemia, lactulose and miralax Plan: - abd xray showed mild constipation - most likely due to pain mediations - will give 1 dose relistor - hold miralax case reviewed and discussed with Dr. Sanchez
[2017-07-06] MEDS ORDERED: MethylPREDNISolone 40 mg Vial IVP SCH (17:17)
[2017-07-06] MEDS ORDERED: POLYETHYLENE GLYCOL 3350 17 GM/Dose PACKET PO STA (18:51)
--- NOTE | 2017-07-07 02:47 | PN ---
DATE: 07/07/2017 SUBJECTIVE: The patient is a 57-year-old female. Patient was seen and examined at the bedside. Still do not have bowel movement, but passing gas. No nausea, vomiting or diarrhea. No hematuria or hematochezia. No swelling of the leg. No chest pain. No palpitation. No headache, no dizziness, but having still intractable back pain. PHYSICAL EXAMINATION: VITAL SIGNS: Temperature 97.5, pulse 95, blood pressure 154/94, respiratory rate 19. HEENT: Head, normocephalic and atraumatic. Eyes, PERRLA. Extraocular muscles intact. Conjunctivae clear. Nose patent. Mucous membrane moist. NECK: Supple. No carotid bruit. No JVD or thyromegaly. CHEST: Bilaterally symmetrical. HEART: S1, S2 positive. LUNGS: Clear to auscultation. ABDOMEN: Soft. Bowel sounds present. No organomegaly. EXTREMITIES: No edema. No cyanosis. NEUROLOGIC: The patient is awake, alert. Moving all four extremities. No focal deficit. MEDICATIONS: Aspirin, Cozaar, Dulcolax, Duragesic patch, metformin, Glucotrol, insulin, Januvia, Lidoderm, Lipitor, MiraLax and tamoxifen. LABORATORY DATA: White blood cells 10.5, hemoglobin 11.7, hematocrit 35.6, platelets 206. Glucose 313, 309 and 320. ASSESSMENT AND PLAN: Ms. Maria Isabel Flores is a 57-year-old lady with anemia, uncontrolled diabetes mellitus, increase Januvia; hemoglobin A1c is 9.8 because of uncontrolled diabetes, iron deficiency, hypercholesterolemia, came with intractable back pain, lumbosacral radiculopathy, has constipation problem. Abdominal x-ray done. History of hypertension, breast cancer status post lumpectomy and radiation therapy. We will continue present treatment. I appreciated lumbar spine MRI. Appreciated Dr. Beck's input. Repeat labs. We will follow up. Ramya Beebe MD
[2017-07-07 07:42] VITALS: RESP 20
[2017-07-07] MEDS: Insulin Reg-MEDIUM-Coverage SC SCH ×4 (08:15→21:20)
--- NOTE | 2017-07-07 08:38 | PN ---
DATE: 07/06/2017 SUBJECTIVE: The patient is 57 years old female. The patient was seen and examined at the bedside, looking comfortable. No nausea, vomiting, or diarrhea. No hematuria or hematochezia. No swelling of the legs. No chest pain. No palpitation. No headache. No dizziness. PHYSICAL EXAMINATION: VITAL SIGNS: Temperature 97.8, pulse 77, blood pressure 120/80 , respiratory rate 20. HEENT: Head normocephalic, atraumatic. Eyes: PERRLA. Extraocular muscles intact. Conjunctivae clear. Nose patent. Mucous membrane moist. NECK: Supple. No carotid bruit. No JVD or thyromegaly. CHEST: Bilaterally symmetrical. HEART: S1 and S2 positive. LUNGS: Clear to auscultation. ABDOMEN: Soft. Bowel sounds positive. No organomegaly. EXTREMITIES: No edema. No cyanosis. NEUROLOGICAL: The patient is alert. Moving all 4 extremities. No focal deficits. MEDICATIONS: Aspirin, potassium, bisacodyl, fentanyl patch, metformin, glipizide, insulin, Januvia, atorvastatin, MiraLax, tamoxifen, amlodipine, prednisone tapering doses. LABORATORY DATA: White blood cells 10.9, hemoglobin 11.7, hematocrit 35.6, platelets 206. Glucose 280, 251. ASSESSMENT AND PLAN: The patient is a 57 years old lady with anemia, uncontrolled diabetes mellitus, intractable back pain, history of left breast cancer status post lumpectomy and radiation therapy, lumbosacral radiculopathy. Now has constipation, got MiraLax, lactulose, Colace, fleet enema, passing gas, getting physical therapy. History of hypertension, getting under control. Gastrointestinal and deep venous thrombosis prophylaxis. Continue present treatment. Waiting for rehab. Repeat labs. We will follow up. Ramya Beebe MD [facility]
[2017-07-07] MEDS: Naproxen 550 mg Tab PO SCH ×2 (09:56→18:09)
[2017-07-07] MEDS: Lidocaine 5% Patch TOP SCH (09:58)
--- NOTE | 2017-07-07 11:21 | CP.PCM.PN ---
<Cinda Lara - Last Filed: 07/07/17 18:27> Subjective - Date & Time of Evaluation Date of Evaluation: 07/07/17 Time of Evaluation: 10:00 - Subjective Subjective: pgy-[address] note for Dr. Sanchez's service Patient seen and examined at bedside. No acute distress. Patient states that she took the relistor yesterday but did not have bowel movement. She was also given miralax. She denies abd pain, but reports bloating. She also reports mild nausea, subsided with zofran. She states that she is tolerating diet. She states that her hip pain has improved with the pain medication. Objective - Vital Signs/Intake and Output Vital Signs (last 24 hours): Temp Pulse Resp BP Pulse Ox 97.6 F 81 20 134/88 98 07/07/17 06:00 07/07/17 06:00 07/07/17 06:00 07/07/17 09:57 07/07/17 06:00 Intake and Output: 07/07/17 07/07/17 06:59 18:59 Intake Total 480 Balance 480 - Medications Medications: Current Medications Acetaminophen (Tylenol 325mg Tab) 650 mg PO Q4H PRN PRN Reason: pain fever Last Admin: 07/06/17 16:37 Dose: 650 mg Amlodipine Besylate (Norvasc) 10 mg PO DAILY [facility] Last Admin: 07/07/17 09:57 Dose: 10 mg Aspirin (Aspirin Chewable) 81 mg PO DAILY [facility] Last Admin: 07/07/17 09:57 Dose: 81 mg Atorvastatin Calcium (Lipitor) 20 mg PO DIN [facility] Last Admin: 07/06/17 17:05 Dose: 20 mg Bisacodyl (Dulcolax) 10 mg RC DAILY PRN PRN Reason: Constipation Last Admin: 07/07/17 10:33 Dose: 10 mg Cyclobenzaprine HCl (Flexeril) 10 mg PO TID [facility] Last Admin: 07/07/17 09:57 Dose: 10 mg Famotidine (Pepcid) 40 mg PO HS [facility] Last Admin: 07/06/17 22:03 Dose: 40 mg Fentanyl (Duragesic) 1 patch TD Q72H [facility] Glipizide (Glucotrol) 5 mg PO BID [facility] Last Admin: 07/07/17 09:57 Dose: 5 mg Insulin Human Regular (Humulin R Med) 0 units SC ACHS [facility] PRN Reason: Protocol Last Admin: 07/07/17 08:15 Dose: 7 units Ketorolac Tromethamine (Toradol) 30 mg IVP Q6H PRN PRN Reason: severe pain Last Admin: 07/07/17 05:44 Dose: 30 mg Lidocaine (Lidoderm) 1 ea TOP DAILY [facility] Last Admin: 07/07/17 09:58 Dose: 1 ea Losartan Potassium (Cozaar) 100 mg PO DAILY [facility] Last Admin: 07/07/17 09:58 Dose: 100 mg Metformin HCl (Glucophage) 1,000 mg PO BID [facility] Last Admin: 07/07/17 09:57 Dose: 1,000 mg Naproxen (Anaprox Ds) 550 mg PO BID [facility] Last Admin: 07/07/17 09:56 Dose: 550 mg Ondansetron HCl (Zofran Inj) 4 mg IVP Q6 PRN PRN Reason: Nausea/Vomiting Last Admin: 07/05/17 18:21 Dose: 4 mg Polyethylene Glycol (Miralax) 17 gm PO DAILY [facility] Last Admin: 07/06/17 10:30 Dose: 17 gm Sitagliptin Phosphate (Januvia) 50 mg PO BID [facility] Last Admin: 07/07/17 09:57 Dose: 50 mg Tamoxifen Citrate (Nolvadex) 20 mg PO DAILY [facility] Last Admin: 07/07/17 10:07 Dose: 20 mg - Labs Labs: 07/05/17 07:00 07/05/17 07:00 PT 10.8 SECONDS (9.4-12.5) 07/02/17 18:00 INR 0.95 (0.93-1.08) 07/02/17 18:00 APTT 25.2 Seconds (25.1-36.5) 07/02/17 18:00 - Constitutional Appears: Well, No Acute Distress - Head Exam Head Exam: ATRAUMATIC, NORMOCEPHALIC - Eye Exam Eye Exam: EOMI, Normal appearance - ENT Exam ENT Exam: Mucous Membranes Moist - Respiratory Exam Respiratory Exam: Clear to Ausculation Bilateral, NORMAL BREATHING PATTERN. absent: Rhonchi, Wheezes, Respiratory Distress - Cardiovascular Exam Cardiovascular Exam: REGULAR RHYTHM. absent: Bradycardia, Tachycardia - GI/Abdominal Exam GI & Abdominal Exam: Distended, Soft, Normal Bowel Sounds. absent: Firm, Guarding, Tenderness, Hernia, Mass - Extremities Exam Extremities Exam: Normal Inspection. absent: Pedal Edema, Tenderness - Neurological Exam Neurological Exam: Alert, Awake, Oriented x3 - Skin Skin Exam: Dry, Intact, Normal Color, Warm Assessment and Plan - Assessment and Plan (Free Text) Assessment: 57-year-old female with PMH of HTN, DM, stage 1 breats cancer, presents for intractable back pain, GI consulted for constipation without improvement after fleet enema, lactulose and miralax Plan: - abd xray showed mild constipation - most likely due to pain mediations - patient received 1 dose relistor with miralax yesterday - will give 1 gallon of golytely case reviewed and discussed with Dr. Sanchez <Angel Sanchez V - Last Filed: 07/08/17 00:10> Objective - Vital Signs/Intake and Output Vital Signs (last 24 hours): Temp Pulse Resp BP Pulse Ox 98.9 F 100 H 20 129/94 H 99 07/07/17 14:00 07/07/17 14:00 07/07/17 14:00 07/07/17 14:00 07/07/17 14:00 Intake and Output: 07/07/17 07/08/17 18:59 06:59 Intake Total 600 Balance 600 - Medications Medications: Current Medications Acetaminophen (Tylenol 325mg Tab) 650 mg PO Q4H PRN PRN Reason: pain fever Last Admin: 07/06/17 16:37 Dose: 650 mg Amlodipine Besylate (Norvasc) 10 mg PO DAILY [facility] Last Admin: 07/07/17 09:57 Dose: 10 mg Aspirin (Aspirin Chewable) 81 mg PO DAILY [facility] Last Admin: 07/07/17 09:57 Dose: 81 mg Atorvastatin Calcium (Lipitor) 20 mg PO DIN [facility] Last Admin: 07/07/17 17:32 Dose: 20 mg Bisacodyl (Dulcolax) 10 mg RC DAILY PRN PRN Reason: Constipation Last Admin: 07/07/17 10:33 Dose: 10 mg Famotidine (Pepcid) 40 mg PO HS [facility] Last Admin: 07/07/17 21:20 Dose: 40 mg Glipizide (Glucotrol) 5 mg PO BID [facility] Last Admin: 07/07/17 18:09 Dose: 5 mg Insulin Human Regular (Humulin R Med) 0 units SC ACHS [facility] PRN Reason: Protocol Last Admin: 07/07/17 21:20 Dose: Not Given Ketorolac Tromethamine (Toradol) 30 mg IVP Q6H PRN PRN Reason: severe pain Last Admin: 07/07/17 05:44 Dose: 30 mg Lidocaine (Lidoderm) 1 ea TOP DAILY [facility] Last Admin: 07/07/17 09:58 Dose: 1 ea Losartan Potassium (Cozaar) 100 mg PO DAILY [facility] Last Admin: 07/07/17 09:58 Dose: 100 mg Metformin HCl (Glucophage) 1,000 mg PO BID [facility] Last Admin: 07/07/17 18:09 Dose: 1,000 mg Naproxen (Anaprox Ds) 550 mg PO BID [facility] Last Admin: 07/07/17 18:09 Dose: 550 mg Ondansetron HCl (Zofran Inj) 4 mg IVP Q6 PRN PRN Reason: Nausea/Vomiting Last Admin: 07/05/17 18:21 Dose: 4 mg Polyethylene Glycol (Miralax) 17 gm PO DAILY [facility] Last Admin: 07/06/17 10:30 Dose: 17 gm Sitagliptin Phosphate (Januvia) 50 mg PO BID [facility] Last Admin: 07/07/17 18:09 Dose: 50 mg Tamoxifen Citrate (Nolvadex) 20 mg PO DAILY [facility] Last Admin: 07/07/17 10:07 Dose: 20 mg - Labs Labs: 07/05/17 07:00 07/05/17 07:00 PT 10.8 SECONDS (9.4-12.5) 07/02/17 18:00 INR 0.95 (0.93-1.08) 07/02/17 18:00 APTT 25.2 Seconds (25.1-36.5) 07/02/17 18:00 Attending/Attestation - Attestation I have personally seen and examined this patient.: Yes I have fully participated in the care of the patient.: Yes I have reviewed all pertinent clinical information, including history, physical exam and plan: Yes Notes (Text): This is an addendum to GI consult report dictated by the Prosthetist.The patient was seen and examined earlier. Medical records, lab studies, imagings were reviewed. Last 24 hours events reviewed. Agreed with the above treatment plan as outlined in Prosthetist 's notes the with the addition of the following 07/08/17 00:03
[2017-07-07] MEDS ORDERED: Peg-Electrolyte Oral Soln 4L (Golytely) PO ONE (14:51)
--- NOTE | 2017-07-08 03:18 | PN ---
DATE: 07/07/2017 SUBJECTIVE: The patient was seen and examined at the bedside, looking comfortable. Back pain is getting better. No fever. No chills. No headache. No dizziness. Sometimes feeling nauseous, but getting relieved with Zofran. Took Relistor, still no bowel movement, now she is drinking GoLYTELY. With GoLYTELY, she has small bowel movement. According to the patient, she is feeling movements in her abdomen. PHYSICAL EXAMINATION: VITAL SIGNS: Temperature 97.6, pulse 81, respiratory rate 20, blood pressure 134/88, pulse oximetry 98. HEENT: Head is normocephalic and atraumatic. Eyes; PERRLA. Extraocular muscles are intact. Conjunctivae are clear. Nose is patent. Mucous membranes are moist. NECK: Supple. No carotid bruit. No JVD or thyromegaly. CHEST: Bilaterally symmetrical. HEART: S1, S2 positive. LUNGS: Clear to auscultation. ABDOMEN: Soft. Bowel sounds present. No organomegaly. EXTREMITIES: No edema. No cyanosis. NEUROLOGICAL: The patient is awake and alert. Moving all 4 extremities. No focal deficit. MEDICATIONS: Tylenol, Norvasc, Lipitor, Flexeril, Duragesic, insulin, Cozaar, Glucophage, Zofran, MiraLax, Januvia, NovoLog. LABORATORY DATA: White blood cells 10.9, hemoglobin 11.7, hematocrit 35.6, and platelets 206. Sodium 135, potassium 5.1, BUN 41, creatinine 1, and glucose 365. ASSESSMENT AND PLAN: Mrs. Maria Isabel Flores is a 57-year-old lady with anemia, hyperkalemia, uncontrolled diabetes mellitus, history of hypertension, stage-I breast cancer, came with intractable back pain, lumbosacral radiculopathy. Getting Toradol, Duragesic patch, lidocaine patch, and muscle relaxant. Now started constipation. GI consult called for constipation without improvement after the fleet enema, lactulose, and MiraLax. now the patient is getting bloated , and according to the patient, she is feeling movement in her stomach. I hope after tomorrow she will do her bowel movement. Appreciated landscaping supervisor's input. They are advising home discharge , with services . Gastrointestinal and deep venous thrombosis prophylaxes. Repeat labs. We will follow up. Ramya Beebe MD [facility]
[2017-07-08 07:07] LABS: HEMOGLOBIN 12.4 g/dL (12.0-16.0); MEAN CELL VOLUME 83.8 fl (80.0-105.0); MEAN CORPUSCULAR HEMOGLOBIN 27.9 pg (25.0-35.0); MEAN CORPUSCULAR HGB CONC 33.3 g/dl (31.0-37.0); MEAN PLATELET VOLUME 11.1 fl (7.0-11.0); RBC 4.44 10^6/uL (3.5-6.1); WHITE BLOOD COUNT 9.9 10^3/ul (4.5-11.0)
[2017-07-08 07:54] VITALS: PULSE 91; TEMP 98.1; O2SAT 98
[2017-07-08 08:05] LABS: BLOOD UREA NITROGEN 27 mg/dL (7-21); CALCIUM 9.5 mg/dL (8.4-10.5); GFR AFRICAN-AMERICAN > 60; GFR NON-AFRICAN AMERICAN > 60
[2017-07-08] MEDS: Insulin Reg-MEDIUM-Coverage SC SCH ×2 (08:22→12:17)
[2017-07-08] MEDS: Naproxen 550 mg Tab PO SCH (09:10)
[2017-07-08] MEDS: Lidocaine 5% Patch TOP SCH (09:10)
[2017-07-08 09:17] VITALS: BP 100/64
--- NOTE | 2017-07-08 16:40 | CP.PCM.PN ---
Subjective - Date & Time of Evaluation Date of Evaluation: 07/08/17 Time of Evaluation: 11:00 - Subjective Subjective: Seen and examined at the bedside earlier today, chart review. Patient tolerated GoLYTELY and had multiple bowel movements with relief. Patient denies nausea, vomiting, shortness of breath or chest pain. No abdominal pain. Tolerating oral intake. No reports of overt GI bleed. Objective - Vital Signs/Intake and Output Vital Signs (last 24 hours): Temp Pulse Resp BP Pulse Ox 98.1 F 91 H 20 100/64 98 07/08/17 06:00 07/08/17 06:00 07/08/17 06:00 07/08/17 09:11 07/08/17 06:00 Intake and Output: 07/08/17 07/08/17 06:59 18:59 Intake Total 480 840 Balance 480 840 - Medications Medications: Current Medications Acetaminophen (Tylenol 325mg Tab) 650 mg PO Q4H PRN PRN Reason: pain fever Last Admin: 07/06/17 16:37 Dose: 650 mg Amlodipine Besylate (Norvasc) 10 mg PO DAILY [facility] Last Admin: 07/08/17 09:11 Dose: Not Given Aspirin (Aspirin Chewable) 81 mg PO DAILY [facility] Last Admin: 07/08/17 09:11 Dose: 81 mg Atorvastatin Calcium (Lipitor) 20 mg PO DIN [facility] Last Admin: 07/07/17 17:32 Dose: 20 mg Bisacodyl (Dulcolax) 10 mg RC DAILY PRN PRN Reason: Constipation Last Admin: 07/07/17 10:33 Dose: 10 mg Famotidine (Pepcid) 40 mg PO HS [facility] Last Admin: 07/07/17 21:20 Dose: 40 mg Glipizide (Glucotrol) 5 mg PO BID [facility] Last Admin: 07/08/17 09:10 Dose: 5 mg Insulin Human Regular (Humulin R Med) 0 units SC ACHS [facility] PRN Reason: Protocol Last Admin: 07/08/17 12:17 Dose: 3 units Ketorolac Tromethamine (Toradol) 30 mg IVP Q6H PRN PRN Reason: severe pain Last Admin: 07/07/17 05:44 Dose: 30 mg Lidocaine (Lidoderm) 1 ea TOP DAILY [facility] Last Admin: 07/08/17 09:10 Dose: 1 ea Losartan Potassium (Cozaar) 100 mg PO DAILY [facility] Last Admin: 07/08/17 09:11 Dose: Not Given Metformin HCl (Glucophage) 1,000 mg PO BID [facility] Last Admin: 07/08/17 09:10 Dose: 1,000 mg Naproxen (Anaprox Ds) 550 mg PO BID [facility] Last Admin: 07/08/17 09:10 Dose: 550 mg Ondansetron HCl (Zofran Inj) 4 mg IVP Q6 PRN PRN Reason: Nausea/Vomiting Last Admin: 07/05/17 18:21 Dose: 4 mg Polyethylene Glycol (Miralax) 17 gm PO DAILY [facility] Last Admin: 07/06/17 10:30 Dose: 17 gm Sitagliptin Phosphate (Januvia) 50 mg PO BID [facility] Last Admin: 07/08/17 09:11 Dose: 50 mg Tamoxifen Citrate (Nolvadex) 20 mg PO DAILY [facility] Last Admin: 07/08/17 09:14 Dose: 20 mg - Labs Labs: 07/08/17 06:30 07/08/17 06:30 PT 10.8 SECONDS (9.4-12.5) 07/02/17 18:00 INR 0.95 (0.93-1.08) 07/02/17 18:00 APTT 25.2 Seconds (25.1-36.5) 07/02/17 18:00 - Constitutional Appears: No Acute Distress - Eye Exam Eye Exam: Normal appearance. absent: Scleral icterus - ENT Exam ENT Exam: Mucous Membranes Moist - Neck Exam Neck Exam: Normal Inspection - Respiratory Exam Respiratory Exam: NORMAL BREATHING PATTERN. absent: Respiratory Distress - Cardiovascular Exam Cardiovascular Exam: +S1, +S2 - GI/Abdominal Exam GI & Abdominal Exam: Soft, Normal Bowel Sounds. absent: Guarding, Tenderness, Rebound - Extremities Exam Extremities Exam: absent: Calf Tenderness - Neurological Exam Neurological Exam: Alert, Awake, Oriented x3 - Skin Skin Exam: Dry, Warm Assessment and Plan - Assessment and Plan (Free Text) Assessment: Assessment: Constipation likely narcotic induced , status post GoLYTELY with multiple BM Intractable back pain Stage I breast cancer History of hypertension History of diabetes mellitus Plan: Continue diet, recommend soft low residual diet On PPI On aspirin Patient may benefit from taking Amitiza upon discharge Seen and discussed with Dr. Sanchez
== END 2017-07-08 17:24 | disposition home or self-care (01) | DRG 243 ==
LOC: ED 17:14 → ERH 19:30 → 5RNO 22:12 → OBSVTOIN 07-04 08:55
PROVIDERS: ADMIT Internal Medicine; ATTEND Internal Medicine
DX: M48.061 Spinal stenosis, lumbar region without neurogenic claudication (principal); E87.5 Hyperkalemia; E11.65 Type 2 diabetes mellitus with hyperglycemia; M54.17 Radiculopathy, lumbosacral region; M47.9 Spondylosis, unspecified; R40.2412 Glasgow coma scale score 13-15, at arrival to emergency department; Z85.3 Personal history of malignant neoplasm of breast; Z85.42 Personal history of malignant neoplasm of other parts of uterus; E78.00 Pure hypercholesterolemia, unspecified; E66.9 Obesity, unspecified; D50.9 Iron deficiency anemia, unspecified; I10 Essential (primary) hypertension; I25.10 Atherosclerotic heart disease of native coronary artery without angina pectoris; T40.605A Adverse effect of unspecified narcotics, initial encounter; Z79.82 Long term (current) use of aspirin; Z92.3 Personal history of irradiation; K59.03 Drug induced constipation; Z68.37 Body mass index [BMI] 37.0-37.9, adult

== ENCOUNTER 2018-04-18 06:54 | Outpatient (CLI) | payer OTHER | END 2018-04-18 06:55 | disposition home or self-care (01) | LOC: CARDIO 06:54 ==

== ENCOUNTER 2018-05-10 17:11 | Inpatient (IN) | payer MEDICAID, OTHER ==
[2018-05-10 17:11] VITALS: BMI 33.6
[2018-05-10] MEDS ORDERED: Sodium Chloride 0.9% 1,000 ML IV STA (18:02)
[2018-05-10 18:21] LABS: VENOUS BLOOD GAS BASE EXCESS 1.5 mmol/L (0.0-2.0); VENOUS BLOOD GAS PO2 43 mm/Hg (30-55); VENOUS BLOOD PH 7.43 (7.32-7.43)
[2018-05-10 18:29] LABS: URINE BILIRUBIN NEGATIVE (NEGATIVE); URINE BLOOD MODERATE (NEGATIVE); URINE GLUCOSE (UA) >=1000 mg/dL (NEGATIVE); URINE LEUKOCYTE ESTERASE SMALL Leu/uL (NEGATIVE); URINE PROTEIN NEGATIVE mg/dL (<30 mg/dL); URINE UROBILINOGEN 0.2 E.U./dL (<1 E.U./dL)
[2018-05-10 18:31] LABS: BASO # 0.01 K/mm3 (0.0-2.0); BASO % 0.1 % (0.0-3.0); EOS # 0.1 (0.0-0.7); HEMOGLOBIN 11.3 g/dL (12.0-16.0); LYMPH % 14.2 % (22.0-35.0); MEAN CELL VOLUME 85.7 fl (80.0-105.0); MEAN CORPUSCULAR HEMOGLOBIN 27.4 pg (25.0-35.0); MEAN CORPUSCULAR HGB CONC 31.9 g/dl (31.0-37.0); MEAN PLATELET VOLUME 10.3 fl (7.0-11.0); MONO # 0.8 (0.1-0.6); MONO % 5.2 % (1.0-6.0); RBC 4.13 10^6/uL (3.5-6.1); RED CELL DISTRIBUTION WIDTH 14.9 % (11.5-14.5); WHITE BLOOD COUNT 14.3 10^3/uL (4.5-11.0)
[2018-05-10 18:32] LABS: URINE APPEARANCE CLEAR (CLEAR); URINE COLOR YELLOW (YELLOW)
[2018-05-10 18:38] LABS: ALB/GLOB RATIO 1.1 (1.1-1.8); ALT/SGPT 6 U/L (7-56); AST/SGOT 19 U/L (14-36); BLOOD UREA NITROGEN 18 mg/dL (7-21); CALCIUM 9.7 mg/dL (8.4-10.5); GFR NON-AFRICAN AMERICAN > 60
--- NOTE | 2018-05-10 18:38 | ED PDOC ---
Arrival/HPI - General Chief Complaint: Fever Historian: Patient - History of Present Illness Narrative History of Present Illness (Text): 05/10/18 18:02 57 year old female, with past medical history of hypertension, hyperlipidemia, diabetes and lumpectomy s/p radiation, presents to the ED for evaluation of fever, nausea and vomiting since past 3 days. Patient states recent hysterectomy done on 04/19/18 and was informed of a mild UTI at the time. Patient reports completion of antibiotics (Macrobid) for the UTI but states fever for past 3 days. Patient states Tmax of 101, intermittently improved after taking Tylenol. Patient denies any other associated somatic complaints. Patient denies any chills, headache, dizziness, chest pain, shortness of breath, dyspnea on exertion, cough, abdominal pain, diarrhea, back pain, neck pain, or any other complaints. PMD: Dr. Beebe Time/Duration: < week Symptom Onset: Gradual Symptom Course: Unchanged Activities at Onset: Light Context: Home Past Medical History - Provider Review Nursing Documentation Reviewed: Yes - Infectious Disease Hx of Infectious Diseases: None - Tetanus Immunization Tetanus Immunization: Unknown - Cardiac Hx Cardiac Disorders: Yes Hx Hypertension: Yes - Pulmonary Hx Respiratory Disorders: No - Neurological Hx Neurological Disorder: No - HEENT Hx HEENT Disorder: No - Renal Hx Renal Disorder: No - Endocrine/Metabolic Hx Endocrine Disorders: Yes Hx Diabetes Mellitus Type 2: Yes - Hematological/Oncological Hx Blood Disorders: Yes Hx Cancer: Yes (stage 1 l breast RADIATION) - Integumentary Hx Dermatological Disorder: No - Musculoskeletal/Rheumatological Hx Musculoskeletal Disorders: No Hx Falls: No - Gastrointestinal Hx Gastrointestinal Disorders: No - Genitourinary/Gynecological Hx Genitourinary Disorders: Yes Hx Reproductive Disorders: Yes (endometrial polyp) - Psychiatric Hx Psychophysiologic Disorder: No Hx Substance Use: No - Surgical History Hx Breast Biopsy: Yes (LOCAL ANESTHESIA. 07/04/13 EXC LEFT BREAST MASS) Hx Dilation and Curettage: Yes Hx Mastectomy: Yes (LEFT BREAST LUMPECTOMY) - Anesthesia Hx Anesthesia: Yes Hx Anesthesia Reactions: No Hx Malignant Hyperthermia: No Family/Social History - Physician Review Nursing Documentation Reviewed: Yes Family/Social History: Unknown Family HX Smoking Status: Never Smoked Hx Alcohol Use: No Hx Substance Use: No Allergies/Home Meds Allergies/Adverse Reactions: Allergies apple Allergy (Intermediate, Verified 05/10/18 17:41) RASH kiwi Allergy (Intermediate, Verified 05/10/18 17:41) RASH Penicillins Allergy (Intermediate, Verified 05/10/18 17:41) RASH fresh fruit Allergy (Uncoded 05/10/18 17:41) RASH Home Medications: Home Meds Medication Instructions Recorded Confirmed GlipiZIDE [Glucotrol] 5 mg PO BID 06/07/13 04/18/18 Simvastatin 40 mg PO DAILY 06/29/13 04/18/18 Olmesartan [BenicarNf] 20 mg PO DAILY 01/13/16 04/18/18 Aspirin [Aspirin Chewable] 1 tab PO DAILY 07/02/17 04/18/18 Tamoxifen Citrate 1 tab PO DAILY 07/02/17 04/18/18 Ertugliflozin Pidolate [Steglatro] 15 mg PO DAILY 03/22/18 04/18/18 MetFORMIN [glucOPHAGE] 1,000 mg PO BID 03/22/18 04/18/18 Review of Systems - Physician Review All systems were reviewed & negative as marked: Yes - Review of Systems Constitutional: Fevers Respiratory: absent: SOB, Cough Cardiovascular: absent: Chest Pain Gastrointestinal: Nausea, Vomiting. absent: Abdominal Pain, Diarrhea Genitourinary Female: absent: Dysuria, Urine Output Changes Musculoskeletal: absent: Back Pain, Neck Pain Skin: absent: Rash Neurological: absent: Headache, Dizziness Endocrine: absent: Diaphoresis Psychiatric: absent: Anxiety Physical Exam Vital Signs Reviewed: Yes Vital Signs Temp Pulse Resp BP Pulse Ox 05/10/18 17:41 100.9 F H 127 H 18 105/75 97 Temperature: Febrile Blood Pressure: Normal Pulse: Tachycardic Respiratory Rate: Normal Appearance: Positive for: Well-Appearing, Non-Toxic, Comfortable Pain Distress: None Mental Status: Positive for: Alert and Oriented X 3 - Systems Exam Head: Present: Atraumatic, Normocephalic Pupils: Present: PERRL Extroacular Muscles: Present: EOMI Conjunctiva: Present: Normal Respiratory/Chest: Present: Clear to Auscultation, Good Air Exchange. No: Respiratory Distress, Accessory Muscle Use Cardiovascular: Present: Regular Rate and Rhythm, Normal S1, S2. No: Murmurs Abdomen: No: Tenderness, Distention, Peritoneal Signs Upper Extremity: Present: Normal Inspection. No: Cyanosis, Edema Lower Extremity: Present: Normal Inspection. No: Edema Neurological: Present: GCS=15, Speech Normal Skin: Present: Warm, Dry, Normal Color. No: Rashes Psychiatric: Present: Alert, Oriented x 3, Normal Insight, Normal Concentration Medical Decision Making ED Course and Treatment: 05/10/18 18:02 Impression: 57 year old female presents to the ED for evaluation of fever, nausea and vomiting. Differential Diagnosis included but are not limited to: Plan: -- VBG -- Labs -- Chest X-ray -- Motrin -- IV Fluids -- Blood Culture -- Urine Culture -- Influenza -- Urinalysis -- Reassess and disposition Prior Visits: Notes and results from previous visits were reviewed. Progress Notes: 05/10/18 18:40 CODE SEPSIS ACTIVATED. - Lab Interpretations Lab Results: pO2 43 mm/Hg (30-55) 05/10/18 18:15 VBG pH 7.43 (7.32-7.43) 05/10/18 18:15 VBG pCO2 39.0 (40-60) L 05/10/18 18:15 VBG HCO3 25.9 mmol/l (21-28) 05/10/18 18:15 VBG Total CO2 27.1 mmol.L (22-28) 05/10/18 18:15 VBG O2 Sat (Calc) 85.3 % (40-65) H 05/10/18 18:15 VBG Base Excess 1.5 mmol/L (0.0-2.0) 05/10/18 18:15 VBG Potassium 4.8 mmol/L (3.6-5.2) 05/10/18 18:15 Sodium 132.0 mmol/L (132-148) 05/10/18 18:15 Chloride 98.0 mmol/L (98-107) 05/10/18 18:15 Glucose 303 mg/dl (65-105) H 05/10/18 18:15 Lactate 2.7 mmol/L (0.7-2.1) H 05/10/18 18:15 FiO2 21.0 % 05/10/18 18:15 Crit Value Called To Melissa kelly 05/10/18 18:15 [place] [id number] 05/10/18 18:15 Blood Gas Notified Time 18205/10/18 18:15 Urine Color Yellow (YELLOW) 05/10/18 18:19 Urine Appearance Clear (CLEAR) 05/10/18 18:19 Urine pH 6.0 (4.7-8.0) 05/10/18 18:19 Ur Specific [place] 1.020 (1.005-1.035) 05/10/18 18:19 Urine Protein Negative mg/dL (<30 mg/dL) 05/10/18 18:19 Urine Glucose (UA) >=1000 mg/dL (NEGATIVE) 05/10/18 18:19 Urine Ketones Trace mg/dL (NEGATIVE) H 05/10/18 18:19 Urine Blood Moderate (NEGATIVE) H 05/10/18 18:19 Urine Nitrate Negative (NEGATIVE) 05/10/18 18: Urine Bilirubin Negative (NEGATIVE) 05/10/18 18:19 Urine Urobilinogen 0.2 E.U./dL (<1 E.U./dL) 05/10/18 18:19 Ur Leukocyte Esterase Small Tori/uL (NEGATIVE) H 05/10/18 18:19 - RAD Interpretation Radiology Orders: 05/10/18 18:02 CHEST PORTABLE [RAD] Stat - Medication Orders Current Medication Orders: Sodium Chloride (Sodium Chloride 0.9%) 1,000 mls @ 999 mls/hr IV .Q1H1M STA Stop: 05/10/18 19:02 Discontinued Medications Ibuprofen (Motrin Tab) 600 mg PO STAT STA Stop: 05/10/18 18:01 - Scribe Statement The provider has reviewed the documentation as recorded by the Scribe Chacho Glover. All medical record entries made by the Scribe were at my direction and personally dictated by me. I have reviewed the chart and agree that the record accurately reflects my personal performance of the history, physical exam, medical decision making, and the department course for this patient. I have also personally directed, reviewed, and agree with the discharge instructions and disposition. Disposition/Present on Arrival - Present on Arrival History of DVT/PE: No History of Uncontrolled Diabetes: No Urinary Catheter: No History of Decub. Ulcer: No History Surgical Site Infection Following: None - Disposition Referrals: Ramya Beebe MD [Primary Care Provider] - Follow up with primary Forms: [employer] ([place])
[2018-05-10 18:43] LABS: URINE BACTERIA FEW /hpf; URINE WBC 25 - 30 /hpf (0-6)
[2018-05-10] MEDS ORDERED: MEROPENEM 500 MG in NS 500 MG/50 ML BAG IVPB ONE (18:46)
--- NOTE | 2018-05-10 18:46 | RAD ---
Date of service: 05/10/2018 HISTORY: fever COMPARISON: 11/27/2015. FINDINGS: LUNGS: The lungs are well inflated and clear. PLEURA: No pleural effusions or pneumothorax. CARDIOVASCULAR: The heart is normal in size. No aortic atherosclerotic calcifications present. OSSEOUS STRUCTURES: Within normal limits for the patient's age. VISUALIZED UPPER ABDOMEN: Normal. OTHER FINDINGS: None. IMPRESSION: No active pulmonary disease.
[2018-05-10 21:26] LABS: VENOUS BLOOD GAS BASE EXCESS 0.7 mmol/L (0.0-2.0); VENOUS BLOOD GAS PO2 69 mm/Hg (30-55); VENOUS BLOOD PH 7.41 (7.32-7.43)
--- NOTE | 2018-05-10 22:29 | PCM.SEPTIC ---
Sepsis Progress Note - Reassessment Type Reassessment Type: Non-invasive reassessment - Non Invasive Reassessment Were the most recent vital sign reviewed: Yes Vital Sign (Latest): Temp Pulse Resp BP Pulse Ox 98.4 F 89 18 102/64 100 05/10/18 19:54 05/10/18 21:55 05/10/18 21:55 05/10/18 21:55 05/10/18 21:55 Cardiovascular: Yes: Regular Rate, Rhythm Respiratory: Yes: Normal Breath Sounds. No: Accessory Muscle Use, Respiratory Distress Capillary Refill: Normal (Less than 2 sec) Skin: Normal Color, Dry
[2018-05-11] MEDS ORDERED: MEROPENEM 500 MG in NS 500 MG/50 ML BAG IVPB SCH (08:15)
[2018-05-11] MEDS ORDERED: HYDROmorphone 0.5 mg/0.5 ml ISec IVP PRN (09:50)
[2018-05-11] MEDS ORDERED: ERTUGLIFLOZIN PIDOLATE 15 MG PO SCH (10:00)
[2018-05-11] MEDS ORDERED: OLMESARTAN 20 MG PO SCH (10:00)
[2018-05-11] MEDS ORDERED: TAMOXIFEN CITRATE PO SCH (10:00)
[2018-05-11] MEDS: ERTUGLIFLOZIN PIDOLATE 15 MG PO SCH (11:01)
[2018-05-11] MEDS: Sodium Chloride 0.9% 1,000 ML IV SCH (11:02)
[2018-05-11] MEDS: Insulin Reg-LOW-Coverage SC SCH ×3 (12:29→22:40)
[2018-05-11] MEDS: Meropenem IV 1 gm in NS 1 GM/50 ML BAG IVPB SCH ×2 (13:51→22:45)
[2018-05-11] MEDS ORDERED: Barium Sulfate Susp 2.1% w/v, 2.0% w/w 450 mL Bottle PO ONE (13:55)
--- NOTE | 2018-05-11 14:12 | CP.PCM.CON ---
<Nasir Gardiner - Last Filed: 05/11/18 14:09> History of Present Illness - History of Present Illness History of Present Illness: Nasir Gardiner D.O. PGY-3, Internal Medicine Resident, Infectious Disease Consultation Note 57 year old female with a PMH of HTN, HLD, DM, lumpectomy s/p radiation, obesity who presented for fever, nausea and vomiting and was found to have sepsis. Infectious disease consultation was requested for sepsis. Patient was seen and examined at bedside. Patient relates how she had a transvaginal hysterectomy on 04/19/18. She was told that she had a UTI at that time and left the hospital with abx. Patient then had a follow up 4 days ago and was again told that she still had a UTI and was given more antibiotics. However when patient went home she began to have fevers with nausea. Patient tried taking tylenol for the fever but when she did not improve she decided to present here. Review of Systems - Review of Systems All systems: reviewed and no additional remarkable complaints except (as per HPI) Past Patient History - Infectious Disease Hx of Infectious Diseases: None - Tetanus Immunizations Tetanus Immunization: Unknown - Past Medical History & Family History Past Medical History?: Yes - Past Social History Smoking Status: Never Smoked - CARDIAC Hx Cardiac Disorders: Yes Hx Hypertension: Yes - PULMONARY Hx Respiratory Disorders: No - NEUROLOGICAL Hx Neurological Disorder: No - HEENT Hx HEENT Problems: No - RENAL Hx Chronic Kidney Disease: No - ENDOCRINE/METABOLIC Hx Endocrine Disorders: Yes Hx Diabetes Mellitus Type 2: Yes - HEMATOLOGICAL/ONCOLOGICAL Hx Blood Disorders: Yes Hx Cancer: Yes (stage 1 l breast RADIATION) - INTEGUMENTARY Hx Dermatological Problems: No - MUSCULOSKELETAL/RHEUMATOLOGICAL Hx Falls: No - GASTROINTESTINAL Hx Gastrointestinal Disorders: No - GENITOURINARY/GYNECOLOGICAL Hx Genitourinary Disorders: Yes Hx Reproductive Disorders: Yes (endometrial polyp) - PSYCHIATRIC Hx Substance Use: No - SURGICAL HISTORY Hx Breast Biopsy: Yes (LOCAL ANESTHESIA. 07/04/13 EXC LEFT BREAST MASS) Hx Dilation and Curettage: Yes Hx Mastectomy: Yes (LEFT BREAST LUMPECTOMY) - ANESTHESIA Hx Anesthesia: Yes Hx Anesthesia Reactions: No Hx Malignant Hyperthermia: No Meds Allergies/Adverse Reactions: Allergies Allergy/AdvReac Type Severity Reaction Status Date / Time apple Allergy Intermediate RASH Verified 05/10/18 17:41 kiwi Allergy Intermediate RASH Verified 05/10/18 17:41 Penicillins Allergy Intermediate RASH Verified 05/10/18 17:41 fresh fruit Allergy RASH Uncoded 05/10/18 17:41 - Medications Medications: Current Medications Acetaminophen (Tylenol 325mg Tab) 650 mg PO Q4H PRN PRN Reason: Fever >100.4 F Last Admin: 05/11/18 09:50 Dose: 650 mg Aspirin (Aspirin Chewable) 81 mg PO DAILY [facility] Last Admin: 05/11/18 10:59 Dose: 81 mg Atorvastatin Calcium (Lipitor) 20 mg PO DIN [facility] Famotidine (Pepcid) 40 mg PO HS [facility] Glipizide (Glucotrol) 10 mg PO BID [facility] Last Admin: 05/11/18 11:01 Dose: 10 mg Hydromorphone HCl (Dilaudid) 0.5 mg IVP Q4H PRN PRN Reason: Pain, Mild (1-3) Sodium Chloride (Sodium Chloride 0.9%) 1,000 mls @ 50 mls/hr IV .Q20H [facility] Last Admin: 05/11/18 11:02 Dose: 50 mls/hr Meropenem (Merrem Iv 1 Gm Premix) 1 gm in 50 mls @ 100 mls/hr IVPB Q8 [facility]; Protocol Stop: 05/18/18 14:01 Last Admin: 05/11/18 13:51 Dose: 100 mls/hr Insulin Human Regular (Humulin R Low) 0 units SC ACHS [facility]; Protocol Last Admin: 05/11/18 12:29 Dose: 3 unit Losartan Potassium (Cozaar) 50 mg PO DAILY [facility] Last Admin: 05/11/18 11:00 Dose: 50 mg Metformin HCl (Glucophage) 1,000 mg PO BID [facility] Last Admin: 05/11/18 11:01 Dose: 1,000 mg Non-Formulary Medication (Ertugliflozin Pidolate [Steglatro]) 15 mg PO DAILY [facility] Last Admin: 05/11/18 11:01 Dose: Not Given Ondansetron HCl (Zofran Inj) 4 mg IVP Q6 PRN PRN Reason: Nausea/Vomiting Tamoxifen Citrate (Nolvadex) 10 mg PO DAILY [facility] Physical Exam - Constitutional Appears: Non-toxic, No Acute Distress - Head Exam Head Exam: ATRAUMATIC - Eye Exam Eye Exam: absent: Scleral icterus - ENT Exam ENT Exam: Mucous Membranes Moist - Neck Exam Neck exam: Positive for: Normal Inspection - Respiratory Exam Respiratory Exam: absent: Rales, Rhonchi, Wheezes - Cardiovascular Exam Cardiovascular Exam: RRR, +S1, +S2 - GI/Abdominal Exam GI & Abdominal Exam: Soft. absent: Tenderness - Extremities Exam Extremities exam: Negative for: calf tenderness, pedal edema - Neurological Exam Neurological exam: Alert, Oriented x3 - Skin Skin Exam: Dry, Warm Results - Vital Signs Recent Vital Signs: Last Vital Signs Temp 100.2 F H 05/11/18 09:50 Pulse 118 H 05/11/18 11:00 Resp 20 05/11/18 08:45 BP 114/74 05/11/18 11:00 Pulse Ox 97 05/11/18 08:45 - Labs Result Diagrams: 05/10/18 18:19 05/10/18 18:19 Labs: Laboratory Results - last 24 hr 05/10/18 05/10/18 05/10/18 18:15 18:19 18:19 WBC 14.3 H RBC 4.13 Hgb 11.3 L Hct 35.4 L MCV 85.7 MCH 27.4 MCHC 31.9 RDW 14.9 H Plt Count 277 MPV 10.3 Neut % (Auto) 79.5 H Lymph % (Auto) 14.2 L Bowman % (Auto) 5.2 Eos % (Auto) 1.0 L Baso % (Auto) 0.1 Lymph # (Auto) 2.0 Bowman # (Auto) 0.8 H Eos # (Auto) 0.1 Baso # (Auto) 0.01 Absolute Neuts (auto) 11.39 H pO2 43 VBG pH 7.43 VBG pCO2 39.0 L VBG HCO3 25.9 VBG Total CO2 27.1 VBG O2 Sat (Calc) 85.3 H VBG Base Excess 1.5 VBG Potassium 4.8 Sodium 132.0 132 Chloride 98.0 97 L Glucose 303 H Lactate 2.7 H FiO2 21.0 Crit Value Called [place] [id number] Blood Gas Notified Time 1821 Potassium 4.8 Carbon Dioxide 25 Anion Gap 15 BUN 18 Creatinine 0.9 Est GFR ( Amer) > 60 Est GFR (Non-Af Amer) > 60 POC Glucose (mg/dL) Random Glucose 293 H Calcium 9.7 Total Bilirubin 0.2 AST 19 ALT 6 L Alkaline Phosphatase 112 Total Protein 7.7 Albumin 4.0 Globulin 3.7 Albumin/Globulin Ratio 1.1 Venous Blood Potassium 4.8 Urine Color Urine Appearance Urine pH Ur Specific [place] Urine Protein Urine Glucose (UA) Urine Ketones Urine Blood Urine Nitrate Urine Bilirubin Urine Urobilinogen Ur Leukocyte Esterase Urine RBC Urine WBC Ur Epithelial Cells Urine Bacteria 05/10/18 05/10/18 05/11/18 18:19 21:20 00:00 WBC RBC Hgb Hct MCV MCH MCHC RDW Plt Count MPV Neut % (Auto) Lymph % (Auto) Bowman % (Auto) Eos % (Auto) Baso % (Auto) Lymph # (Auto) Bowman # (Auto) Eos # (Auto) Baso # (Auto) Absolute Neuts (auto) pO2 69 H VBG pH 7.41 VBG pCO2 40.0 VBG HCO3 25.4 VBG Total CO2 26.6 VBG O2 Sat (Calc) 96.4 H VBG Base Excess 0.7 VBG Potassium 4.1 Sodium 135.0 Chloride 104.0 Glucose 211 H Lactate 1.5 FiO2 21.0 Crit Value Called To Crit Value Called By Blood Gas Notified Time Potassium Carbon Dioxide Anion Gap BUN Creatinine Est GFR ( Amer) Est GFR (Non-Af Amer) POC Glucose (mg/dL) 224 H Random Glucose Calcium Total Bilirubin AST ALT Alkaline Phosphatase Total Protein Albumin Globulin Albumin/Globulin Ratio Venous Blood Potassium 4.1 Urine Color Yellow Urine Appearance Clear Urine pH 6.0 Ur Specific [place] 1.020 Urine Protein Negative Urine Glucose (UA) >=1000 Urine Ketones Trace H Urine Blood Moderate H Urine Nitrate Negative Urine Bilirubin Negative Urine Urobilinogen 0.2 Ur Leukocyte Esterase Small H Urine RBC 2 - 5 H Urine WBC 25 - 30 H Ur Epithelial Cells 4 - 5 Urine Bacteria Few 05/11/18 05/11/18 05/11/18 07:27 11:09 12:20 WBC RBC Hgb Hct MCV MCH MCHC RDW Plt Count MPV Neut % (Auto) Lymph % (Auto) Bowman % (Auto) Eos % (Auto) Baso % (Auto) Lymph # (Auto) Bowman # (Auto) Eos # (Auto) Baso # (Auto) Absolute Neuts (auto) pO2 VBG pH VBG pCO2 VBG HCO3 VBG Total CO2 VBG O2 Sat (Calc) VBG Base Excess VBG Potassium Sodium Chloride Glucose Lactate FiO2 Crit Value Called To Crit Value Called By Blood Gas Notified Time Potassium Carbon Dioxide Anion Gap BUN Creatinine Est GFR ( Amer) Est GFR (Non-Af Amer) POC Glucose (mg/dL) 215 H 273 H 260 H Random Glucose Calcium Total Bilirubin AST ALT Alkaline Phosphatase Total Protein Albumin Globulin Albumin/Globulin Ratio Venous Blood Potassium Urine Color Urine Appearance Urine pH Ur Specific [place] Urine Protein Urine Glucose (UA) Urine Ketones Urine Blood Urine Nitrate Urine Bilirubin Urine Urobilinogen Ur Leukocyte Esterase Urine RBC Urine WBC Ur Epithelial Cells Urine Bacteria Assessment & Plan - Assessment and Plan (Free Text) Assessment: 57 year old female with a PMH of HTN, HLD, DM, lumpectomy s/p radiation, obesity who presented for fever, nausea and vomiting and was found to have sepsis. Infectious disease consultation was requested for sepsis. Plan: Sepsis likely 2/2 urine as a source HTN HLD DM Obesity Hx breast CA s/p lumpectomy and radiation Tmax 100.9 inpatient with tachycardia and leukocytosis Urine likely the source Cultures pending Will empirically start on meropenem 1g q8h HIV pending HgbA1c tomorrow AM CT abd/pelvis to r/o collection given recent history of transvaginal US and now sepsis We will follow with you Patient was seen and examined and case to be discussed with attending physician Thank you for the pleasure of participating in the care of this patient - Date & Time Date: 05/11/18 Time: 10:10 <Javi Chapin - Last Filed: 05/11/18 14:43> Meds - Medications Medications: Current Medications Acetaminophen (Tylenol 325mg Tab) 650 mg PO Q4H PRN PRN Reason: Fever >100.4 F Last Admin: 05/11/18 09:50 Dose: 650 mg Aspirin (Aspirin Chewable) 81 mg PO DAILY [facility] Last Admin: 05/11/18 10:59 Dose: 81 mg Atorvastatin Calcium (Lipitor) 20 mg PO DIN [facility] Famotidine (Pepcid) 40 mg PO HS [facility] Glipizide (Glucotrol) 10 mg PO BID [facility] Last Admin: 05/11/18 11:01 Dose: 10 mg Hydromorphone HCl (Dilaudid) 0.5 mg IVP Q4H PRN PRN Reason: Pain, Mild (1-3) Sodium Chloride (Sodium Chloride 0.9%) 1,000 mls @ 50 mls/hr IV .Q20H [facility] Last Admin: 05/11/18 11:02 Dose: 50 mls/hr Meropenem (Merrem Iv 1 Gm Premix) 1 gm in 50 mls @ 100 mls/hr IVPB Q8 [facility]; Protocol Stop: 05/18/18 14:01 Last Admin: 05/11/18 13:51 Dose: 100 mls/hr Insulin Human Regular (Humulin R Low) 0 units SC ACHS [facility]; Protocol Last Admin: 05/11/18 12:29 Dose: 3 unit Losartan Potassium (Cozaar) 50 mg PO DAILY [facility] Last Admin: 05/11/18 11:00 Dose: 50 mg Metformin HCl (Glucophage) 1,000 mg PO BID [facility] Last Admin: 05/11/18 11:01 Dose: 1,000 mg Non-Formulary Medication (Ertugliflozin Pidolate [Steglatro]) 15 mg PO DAILY [facility] Last Admin: 05/11/18 11:01 Dose: Not Given Ondansetron HCl (Zofran Inj) 4 mg IVP Q6 PRN PRN Reason: Nausea/Vomiting Tamoxifen Citrate (Nolvadex) 10 mg PO DAILY [facility] Results - Vital Signs Recent Vital Signs: Last Vital Signs Temp 100.2 F H 05/11/18 09:50 Pulse 118 H 05/11/18 11:00 Resp 20 05/11/18 08:45 BP 114/74 05/11/18 11:00 Pulse Ox 97 05/11/18 08:45 - Labs Result Diagrams: 05/10/18 18:19 05/10/18 18:19 Labs: Laboratory Results - last 24 hr 05/10/18 05/10/18 05/10/18 18:15 18:19 18:19 WBC 14.3 H RBC 4.13 Hgb 11.3 L Hct 35.4 L MCV 85.7 MCH 27.4 MCHC 31.9 RDW 14.9 H Plt Count 277 MPV 10.3 Neut % (Auto) 79.5 H Lymph % (Auto) 14.2 L Bowman % (Auto) 5.2 Eos % (Auto) 1.0 L Baso % (Auto) 0.1 Lymph # (Auto) 2.0 Bowman # (Auto) 0.8 H Eos # (Auto) 0.1 Baso # (Auto) 0.01 Absolute Neuts (auto) 11.39 H pO2 43 VBG pH 7.43 VBG pCO2 39.0 L VBG HCO3 25.9 VBG Total CO2 27.1 VBG O2 Sat (Calc) 85.3 H VBG Base Excess 1.5 VBG Potassium 4.8 Sodium 132.0 132 Chloride 98.0 97 L Glucose 303 H Lactate 2.7 H FiO2 21.0 Crit Value Called [place] [id number] Blood Gas Notified Time 1821 Potassium 4.8 Carbon Dioxide 25 Anion Gap 15 BUN 18 Creatinine 0.9 Est GFR ( Amer) > 60 Est GFR (Non-Af Amer) > 60 POC Glucose (mg/dL) Random Glucose 293 H Calcium 9.7 Total Bilirubin 0.2 AST 19 ALT 6 L Alkaline Phosphatase 112 Total Protein 7.7 Albumin 4.0 Globulin 3.7 Albumin/Globulin Ratio 1.1 Venous Blood Potassium 4.8 Urine Color Urine Appearance Urine pH Ur Specific [place] Urine Protein Urine Glucose (UA) Urine Ketones Urine Blood Urine Nitrate Urine Bilirubin Urine Urobilinogen Ur Leukocyte Esterase Urine RBC Urine WBC Ur Epithelial Cells Urine Bacteria 05/10/18 05/10/18 05/11/18 18:19 21:20 00:00 WBC RBC Hgb Hct MCV MCH MCHC RDW Plt Count MPV Neut % (Auto) Lymph % (Auto) Bowman % (Auto) Eos % (Auto) Baso % (Auto) Lymph # (Auto) Bowman # (Auto) Eos # (Auto) Baso # (Auto) Absolute Neuts (auto) pO2 69 H VBG pH 7.41 VBG pCO2 40.0 VBG HCO3 25.4 VBG Total CO2 26.6 VBG O2 Sat (Calc) 96.4 H VBG Base Excess 0.7 VBG Potassium 4.1 Sodium 135.0 Chloride 104.0 Glucose 211 H Lactate 1.5 FiO2 21.0 Crit Value Called To Crit Value Called By Blood Gas Notified Time Potassium Carbon Dioxide Anion Gap BUN Creatinine Est GFR ( Amer) Est GFR (Non-Af Amer) POC Glucose (mg/dL) 224 H Random Glucose Calcium Total Bilirubin AST ALT Alkaline Phosphatase Total Protein Albumin Globulin Albumin/Globulin Ratio Venous Blood Potassium 4.1 Urine Color Yellow Urine Appearance Clear Urine pH 6.0 Ur Specific [place] 1.020 Urine Protein Negative Urine Glucose (UA) >=1000 Urine Ketones Trace H Urine Blood Moderate H Urine Nitrate Negative Urine Bilirubin Negative Urine Urobilinogen 0.2 Ur Leukocyte Esterase Small H Urine RBC 2 - 5 H Urine WBC 25 - 30 H Ur Epithelial Cells 4 - 5 Urine Bacteria Few 05/11/18 05/11/18 05/11/18 07:27 11:09 12:20 WBC RBC Hgb Hct MCV MCH MCHC RDW Plt Count MPV Neut % (Auto) Lymph % (Auto) Bowman % (Auto) Eos % (Auto) Baso % (Auto) Lymph # (Auto) Bowman # (Auto) Eos # (Auto) Baso # (Auto) Absolute Neuts (auto) pO2 VBG pH VBG pCO2 VBG HCO3 VBG Total CO2 VBG O2 Sat (Calc) VBG Base Excess VBG Potassium Sodium Chloride Glucose Lactate FiO2 Crit Value Called To Crit Value Called By Blood Gas Notified Time Potassium Carbon Dioxide Anion Gap BUN Creatinine Est GFR ( Amer) Est GFR (Non-Af Amer) POC Glucose (mg/dL) 215 H 273 H 260 H Random Glucose Calcium Total Bilirubin AST ALT Alkaline Phosphatase Total Protein Albumin Globulin Albumin/Globulin Ratio Venous Blood Potassium Urine Color Urine Appearance Urine pH Ur Specific [place] Urine Protein Urine Glucose (UA) Urine Ketones Urine Blood Urine Nitrate Urine Bilirubin Urine Urobilinogen Ur Leukocyte Esterase Urine RBC Urine WBC Ur Epithelial Cells Urine Bacteria Attending/Attestation - Attestation I have personally seen and examined this patient.: Yes I have fully participated in the care of the patient.: Yes I have reviewed all pertinent clinical information: Yes
[2018-05-12] MEDS ORDERED: Magnesium Hydroxide Susp 30 ml UD PO ONE (03:42)
--- NOTE | 2018-05-12 03:45 | CP.PCM.PCO ---
<Shoaib Flores - Last Filed: 05/12/18 03:45> Addendum Addendum: 05/12/18 03:42 Paged by RN Patient complaining of left sided headache in temporal region Patient denies any vision or hearing changes, dizziness, weakness On examination vital signs within normal limits Neurological exam without focal deficits Tylenol to be administered Will continue to monitor Shoaib Flores PGY-1 <Henri Tena - Last Filed: 05/12/18 19:26> Attending/Attestation - Attestation I have personally seen and examined this patient.: No I have fully participated in the care of the patient.: No I have reviewed all pertinent clinical information: No
[2018-05-12] MEDS: Meropenem IV 1 gm in NS 1 GM/50 ML BAG IVPB SCH ×3 (06:03→21:44)
[2018-05-12 06:50] LABS: BASO # 0.02 K/mm3 (0.0-2.0); BASO % 0.2 % (0.0-3.0); EOS # 0.2 (0.0-0.7); EOS % 1.8 % (1.5-5.0); HEMOGLOBIN 9.7 g/dL (12.0-16.0); LYMPH % 18.1 % (22.0-35.0); MEAN CELL VOLUME 83.6 fl (80.0-105.0); MEAN CORPUSCULAR HEMOGLOBIN 27.5 pg (25.0-35.0); MEAN CORPUSCULAR HGB CONC 32.9 g/dl (31.0-37.0); MONO # 0.8 (0.1-0.6); MONO % 6.8 % (1.0-6.0); RBC 3.53 10^6/uL (3.5-6.1); RED CELL DISTRIBUTION WIDTH 14.7 % (11.5-14.5); WHITE BLOOD COUNT 11.1 10^3/uL (4.5-11.0)
[2018-05-12 06:55] LABS: IRON 12 ug/dL (45-180)
[2018-05-12 07:04] LABS: % IRON SATURATION 4 % (20-55); TOTAL IRON BINDING CAPACITY 303 ug/dL (265-497)
[2018-05-12 07:05] LABS: LDL CHOLESTEROL 58 mg/dL (0-129)
[2018-05-12 07:10] LABS: BLOOD UREA NITROGEN 11 mg/dL (7-21); CALCIUM 8.8 mg/dL (8.4-10.5); GFR NON-AFRICAN AMERICAN > 60; HDL CHOLESTEROL 47 mg/dL (29-60)
--- NOTE | 2018-05-12 08:36 | HP ---
DATE OF EXAM: 05/11/2018 CHIEF COMPLAINTS: Fever and body aches. HISTORY OF PRESENT ILLNESS: The patient is a 57-year-old female with past medical history of hypertension, hypercholesterolemia, diabetes, lumpectomy status post radiation, came to the emergency department for evaluation of fever, nausea, and vomiting since the past three days. The patient says that she has had hysterectomy done on 04/19/2018, was informed by the doctor that she had mild UTI. At this time, Macrobid was given. The patient reports completing of Macrobid for UTI, but states fever for the past three days. Her temperature was like 101 to 102, intermittently improved after taking Tylenol. She called her doctor, they gave her second dose of Macrobid, but fever was continuous, then she came to the emergency room with complaints. The patient denies chills, headache, or dizziness. No shortness of breath. No dyspnea on exertion. PAST MEDICAL HISTORY: Hypertension, diabetes mellitus type 2, breast cancer stage I status post breast radiation, endometrial polyp, a breast mass, left breast lumpectomy. Now, she had recently hysterectomy with ovarian tube removal. FAMILY HISTORY: Father and mother noncontributory. HABITS: Never smoked. No drugs or ethanol. ALLERGIES: THE PATIENT IS ALLERGIC TO APPLE, KIWI, PENICILLIN, AND FRESH FRUIT. HOME MEDICATIONS: Glyburide, simvastatin, Benicar, tamoxifen, and metformin. REVIEW OF SYSTEMS: The patient was seen and examined at the bedside. Looking comfortable. Daughter was sitting on the bedside also. No fever. No chills. No hematuria. No hematochezia. No headache or dizziness. No chest pain. No palpitation. Still feeling feverish. PHYSICAL EXAMINATION VITAL SIGNS: Temperature 100.1, T-max 100.9 in the hospital, pulse 109, blood pressure 113/79, and respiratory rate 20. HEENT: Head is normocephalic and atraumatic. Eyes; PERRLA. Extraocular muscles intact. Conjunctivae are clear. Nose patent. NECK: Supple. No carotid bruits. No JVD. No thyromegaly. CHEST: Bilaterally symmetrical. HEART: S1 and S2 positive. LUNGS: Clear to auscultation. ABDOMEN: Soft. Bowel sounds present. No organomegaly. EXTREMITIES: No edema. No cyanosis. NEUROLOGIC: The patient is awake and alert. Moving all four extremities. No focal deficit. LABORATORY DATA: White blood cell is 14.3, hemoglobin 11.3, hematocrit 35.4, and platelets 277. Glucose 200 to 226, sodium 132, potassium 4.8, BUN 18, and creatinine 0.9. ASSESSMENT AND PLAN: The patient is a 57-year-old lady with diabetes mellitus, leukocytosis, anemia, ketonuria, hematuria, history of breast cancer, status post lumpectomy, radiation therapy. She went for CAT scan of the abdomen and pelvis, results are pending. Seen by Infectious Disease, Dr. Chapin. History of hysterectomy with removal of the fallopian tube. Sepsis likely due to urine source. Obesity. Fever was 100.9 in a patient with tachycardia and leukocytosis, urine likely cause, cultures done and pending, started on meropenem by Dr. Chapin 1 g IV every 8 hours, HIV results pending. We will do hemoglobin A1c tomorrow. Discussion done with the patient and the patient's daughter who is sitting on the bed. Repeat labs. We will follow up. Ramya Beebe MD
[2018-05-12] MEDS: Insulin Reg-LOW-Coverage SC SCH ×4 (10:07→21:41)
--- NOTE | 2018-05-12 11:15 | CT ---
Date of service: 05/11/2018 PROCEDURE: CT Abdomen and Pelvis without intravenous contrast HISTORY: s/p transvaginal hysterectomy COMPARISON: None. TECHNIQUE: Technique. Contrast dose: Radiation dose: Total exam DLP = 922.7 mGy-cm. This CT exam was performed using one or more of the following dose reduction techniques: Automated exposure control, adjustment of the mA and/or kV according to patient size, and/or use of iterative reconstruction technique. FINDINGS: LOWER THORAX: Unremarkable. LIVER: Fatty liver. No gross lesion or ductal dilatation. GALLBLADDER AND BILE DUCTS: Unremarkable. PANCREAS: Unremarkable. No gross lesion or ductal dilatation. SPLEEN: Unremarkable. ADRENALS: 1.9 centimeter left adrenal nodule likely an adenoma. KIDNEYS AND URETERS: Lateral lobulated kidneys likely due to chronic reflux froth a. VASCULATURE: Unremarkable. No aortic aneurysm. No aortic atherosclerotic calcification or mural plaque present. BOWEL: Unremarkable. No obstruction. No gross mural thickening. APPENDIX: Unremarkable. Normal appendix. PERITONEUM: Unremarkable. No free fluid. No free air. LYMPH NODES: Unremarkable. No enlarged lymph nodes. BLADDER: Nondistended bladder. REPRODUCTIVE: Hysterectomy. BONES: No acute fracture. OTHER FINDINGS: Small umbilical hernia containing omental fat. IMPRESSION: Bilateral lobulated kidneys likely due to chronic reflux nephropathy.1.9 centimeter left adrenal nodule likely an adenoma. Recommend follow-up. Hysterectomy.
[2018-05-12] MEDS: ERTUGLIFLOZIN PIDOLATE 15 MG PO SCH (11:55)
--- NOTE | 2018-05-12 12:36 | PN ---
DATE: 05/12/2018 SUBJECTIVE: The patient was seen and examined at the bedside on 05/12/2018. This progress note is for 05/12/2018. Last night, the patient had an episode of headache. Tylenol was given. Today, in the morning, no headache, no dizziness, no chest pain, no palpitations. Had vaginal spotting last night. The patient had recently hysterectomy with fallopian tube was done. I put consult with Dr. Gabrielle Weiss meanwhile. No headache, no fevers, no chills, no palpitations. PHYSICAL EXAMINATION: VITAL SIGNS: Temperature 99.2, pulse 104, blood pressure 113/80, respiratory rate 20. HEENT: Normocephalic, atraumatic. Eyes: PERRLA. Extraocular muscles intact. Conjunctivae clear. Nose patent. Mucous membranes moist. NECK: Supple. No carotid bruit. No JVD or thyromegaly. CHEST: Bilaterally symmetrical. HEART: S1 and S2 positive. LUNGS: Clear to auscultation. ABDOMEN: Soft. Bowel sounds present. No organomegaly. EXTREMITIES: No edema. No cyanosis. NEUROLOGICAL: The patient is awake and alert, moving all four extremities. No focal deficits. MEDICATIONS: Aspirin, Cozaar, Dilaudid, Glucophage, Glucotrol, insulin, Lipitor, Merrem, Pepcid, Zofran. LABORATORY DATA: White blood cell 11.1, hemoglobin 9.7, hematocrit 29.5, platelets 233. Sodium 136, potassium 4.2, BUN 11, creatinine 0.8, glucose 206. Iron saturation 4. ASSESSMENT AND PLAN: Ms. Maria Isabel Flores is a 57-year-old lady with leukopenia, anemia with drop of 2 g of hemoglobin, iron deficiency with iron deficiency anemia, diabetes mellitus, ketonuria, hematuria, urinary tract infection, seen by Dr. Chapin, Infectious Disease. Had headache last night, got Tylenol. CAT scan of the abdomen and pelvis was done, results are still pending. History of hypertension. Lumpectomy of the breast as per radiation therapy, obesity, recently hysterectomy. Sepsis, likely due to urine as a source, has T-max 100.9. Today's temperature has been 99. Urine likely source; cultures are pending. Other testing done, results are pending. Repeat labs. We will replace iron. We will follow. Ramya Beebe MD [email or web address]
[2018-05-12 13:18] LABS: FOLATE 9.1 ng/mL
--- NOTE | 2018-05-12 15:48 | CP.PCM.PN ---
<Nasir Gardiner - Last Filed: 05/12/18 15:46> Subjective - Date & Time of Evaluation Date of Evaluation: 05/12/18 Time of Evaluation: 09:20 - Subjective Subjective: Nasir Gardiner D.O. PGY-3, Internal Medicine Resident, Infectious Disease Progress Note 57 year old female with a PMH of HTN, HLD, DM, lumpectomy s/p radiation, obesity who presented for fever, nausea and vomiting and was found to have sepsis. Infectious disease consultation was requested for sepsis. Patient was seen and examined at bedside with at bedside. Doing markedly better. No more burning on urination. Still some urgency. Objective - Vital Signs/Intake and Output Vital Signs (last 24 hours): Temp Pulse Resp BP Pulse Ox 99.2 F 104 H 20 113/80 96 05/12/18 09:03 05/12/18 10:06 05/12/18 09:03 05/12/18 10:06 05/12/18 09:03 Intake and Output: 05/12/18 05/12/18 06:59 18:59 Intake Total 1585 Balance 1585 - Medications Medications: Current Medications Acetaminophen (Tylenol 325mg Tab) 650 mg PO Q4H PRN PRN Reason: Fever >100.4 F Last Admin: 05/11/18 18:10 Dose: 650 mg Aspirin (Aspirin Chewable) 81 mg PO DAILY [facility] Last Admin: 05/12/18 10:06 Dose: 81 mg Atorvastatin Calcium (Lipitor) 20 mg PO DIN [facility] Last Admin: 05/11/18 17:42 Dose: 20 mg Famotidine (Pepcid) 40 mg PO HS [facility] Last Admin: 05/11/18 22:44 Dose: 40 mg Glipizide (Glucotrol) 10 mg PO BID [facility] Last Admin: 05/12/18 10:07 Dose: 10 mg Hydromorphone HCl (Dilaudid) 0.5 mg IVP Q4H PRN PRN Reason: Pain, Mild (1-3) Sodium Chloride (Sodium Chloride 0.9%) 1,000 mls @ 50 mls/hr IV .Q20H [facility] Last Admin: 05/11/18 11:02 Dose: 50 mls/hr Meropenem (Merrem Iv 1 Gm Premix) 1 gm in 50 mls @ 100 mls/hr IVPB Q8 [facility]; Protocol Stop: 05/18/18 14:01 Last Admin: 05/12/18 14:17 Dose: 100 mls/hr Insulin Human Regular (Humulin R Low) 0 units SC ACHS [facility]; Protocol Last Admin: 05/12/18 11:15 Dose: 4 unit Losartan Potassium (Cozaar) 50 mg PO DAILY [facility] Last Admin: 05/12/18 10:06 Dose: 50 mg Metformin HCl (Glucophage) 1,000 mg PO BID [facility] Last Admin: 05/12/18 10:07 Dose: 1,000 mg Non-Formulary Medication (Ertugliflozin Pidolate [Steglatro]) 15 mg PO DAILY [facility] Last Admin: 05/12/18 11:55 Dose: Not Given Ondansetron HCl (Zofran Inj) 4 mg IVP Q6 PRN PRN Reason: Nausea/Vomiting Tamoxifen Citrate (Nolvadex) 20 mg PO DAILY [facility] Last Admin: 05/12/18 10:08 Dose: 20 mg - Labs Labs: 05/12/18 06:30 05/12/18 06:30 - Constitutional Appears: Non-toxic, No Acute Distress - Head Exam Head Exam: ATRAUMATIC - Eye Exam Eye Exam: absent: Scleral icterus - ENT Exam ENT Exam: Mucous Membranes Moist - Neck Exam Neck exam: Positive for: Normal Inspection - Respiratory Exam Respiratory Exam: absent: Rales, Rhonchi, Wheezes - Cardiovascular Exam Cardiovascular Exam: RRR, +S1, +S2 - GI/Abdominal Exam GI & Abdominal Exam: Soft. absent: Tenderness - Extremities Exam Extremities exam: Negative for: calf tenderness, pedal edema - Neurological Exam Neurological exam: Alert, Oriented x4 - Skin Skin Exam: Dry, Warm Assessment and Plan - Assessment and Plan (Free Text) Assessment: 57 year old female with a PMH of HTN, HLD, DM, lumpectomy s/p radiation, obesity who presented for fever, nausea and vomiting and was found to have sepsis. Infectious disease consultation was requested for sepsis. Plan: Sepsis 2/2 urine as a source HTN HLD DM Obesity Hx breast CA s/p lumpectomy and radiation Continue meropenem 1g q8h day 2 HIV pending HgbA1c decreased from above 9 to [address].6% Ct abd/pelvis negative for any collections We will follow with you Patient was seen and examined and case to be discussed with attending physician Thank you for the pleasure of participating in the care of this patient <Javi Chapin - Last Filed: 05/12/18 17:17> Objective - Vital Signs/Intake and Output Vital Signs (last 24 hours): Temp Pulse Resp BP Pulse Ox 99.2 F 104 H 20 113/80 96 05/12/18 09:03 05/12/18 10:06 05/12/18 09:03 05/12/18 10:06 05/12/18 09:03 Intake and Output: 05/12/18 05/12/18 06:59 18:59 Intake Total 1585 Balance 1585 - Medications Medications: Current Medications Acetaminophen (Tylenol 325mg Tab) 650 mg PO Q4H PRN PRN Reason: Fever >100.4 F Last Admin: 05/11/18 18:10 Dose: 650 mg Aspirin (Aspirin Chewable) 81 mg PO DAILY [facility] Last Admin: 05/12/18 10:06 Dose: 81 mg Atorvastatin Calcium (Lipitor) 20 mg PO DIN [facility] Last Admin: 05/11/18 17:42 Dose: 20 mg Famotidine (Pepcid) 40 mg PO HS [facility] Last Admin: 05/11/18 22:44 Dose: 40 mg Glipizide (Glucotrol) 10 mg PO BID [facility] Last Admin: 05/12/18 10:07 Dose: 10 mg Hydromorphone HCl (Dilaudid) 0.5 mg IVP Q4H PRN PRN Reason: Pain, Mild (1-3) Sodium Chloride (Sodium Chloride 0.9%) 1,000 mls @ 50 mls/hr IV .Q20H [facility] Last Admin: 05/11/18 11:02 Dose: 50 mls/hr Meropenem (Merrem Iv 1 Gm Premix) 1 gm in 50 mls @ 100 mls/hr IVPB Q8 [facility]; Protocol Stop: 05/18/18 14:01 Last Admin: 05/12/18 14:17 Dose: 100 mls/hr Insulin Human Regular (Humulin R Low) 0 units SC ACHS [facility]; Protocol Last Admin: 05/12/18 11:15 Dose: 4 unit Losartan Potassium (Cozaar) 50 mg PO DAILY [facility] Last Admin: 05/12/18 10:06 Dose: 50 mg Metformin HCl (Glucophage) 1,000 mg PO BID [facility] Last Admin: 05/12/18 10:07 Dose: 1,000 mg Non-Formulary Medication (Ertugliflozin Pidolate [Steglatro]) 15 mg PO DAILY [facility] Last Admin: 05/12/18 11:55 Dose: Not Given Ondansetron HCl (Zofran Inj) 4 mg IVP Q6 PRN PRN Reason: Nausea/Vomiting Tamoxifen Citrate (Nolvadex) 20 mg PO DAILY [facility] Last Admin: 05/12/18 10:08 Dose: 20 mg - Labs Labs: 05/12/18 06:30 05/12/18 06:30 Attending/Attestation - Attestation I have personally seen and examined this patient.: Yes I have fully participated in the care of the patient.: Yes I have reviewed all pertinent clinical information, including history, physical exam and plan: Yes
[2018-05-13] MEDS: Meropenem IV 1 gm in NS 1 GM/50 ML BAG IVPB SCH ×3 (05:36→22:32)
[2018-05-13 08:00] LABS: HEMOGLOBIN 9.8 g/dL (12.0-16.0); MEAN CELL VOLUME 84.3 fl (80.0-105.0); MEAN PLATELET VOLUME 9.7 fl (7.0-11.0); RBC 3.63 10^6/uL (3.5-6.1); RED CELL DISTRIBUTION WIDTH 14.5 % (11.5-14.5); WHITE BLOOD COUNT 8.1 10^3/uL (4.5-11.0)
[2018-05-13 08:11] LABS: BLOOD UREA NITROGEN 11 mg/dL (7-21); CALCIUM 9.4 mg/dL (8.4-10.5); GFR NON-AFRICAN AMERICAN > 60
--- NOTE | 2018-05-13 10:12 | PN ---
DATE: 05/12/2018 SUBJECTIVE: This is a 57-year-old patient who had a recent vaginal hysterectomy who is now admitted with a few days of fever. She was told she had a urinary tract infection at the time of surgery and was on Macrobid. She reports a temperature of greater than 101, which was improving after taking Tylenol. She came to the emergency room and was admitted for possible urosepsis. LABORATORY DATA: Blood cultures are currently negative. WBC count was 14.3, which has come down to 11. The patient had a CT scan yesterday, which shows the kidneys to be lobulated possibly due to chronic reflux. There is no mention of hydronephrosis. There is no mention of any pelvic abscesses. No stones or other obstructing lesions. MEDICATIONS: She is being treated with IV antibiotics per ID recommendation. IMPRESSION AND PLAN: There does not appear to be any indication for any acute urological surgical intervention. It is possible that the patient has a urinary infection. No urine culture is available, but the blood cultures are currently negative. The patient has been afebrile today with a temperature of 99.2, although she does remain somewhat tachycardic. PLAN: The patient needs a [employer] consultation with the surgeon who did the vaginal hysterectomy as most likely these are postoperative complications. I will review the CT scan, but as of this time, again, there does not appear to be any acute urological surgical indication. The patient should be treated for possible infection as per Infectious Disease and Medicine recommendations. Paramjit Sim MD
[2018-05-13] MEDS: ERTUGLIFLOZIN PIDOLATE 15 MG PO SCH (10:17)
[2018-05-13] MEDS: Insulin Reg-LOW-Coverage SC SCH ×4 (10:18→23:02)
--- NOTE | 2018-05-13 11:16 | CP.PCM.PN ---
<Nasir Gardiner - Last Filed: 05/13/18 11:12> Subjective - Date & Time of Evaluation Date of Evaluation: 05/13/18 Time of Evaluation: 07:52 - Subjective Subjective: Nasir Gardiner D.O. PGY-3, Internal Medicine Resident, Infectious Disease Progress Note 57 year old female with a PMH of HTN, HLD, DM, lumpectomy s/p radiation, obesity who presented for fever, nausea and vomiting and was found to have sepsis. Infectious disease consultation was requested for sepsis. Patient was seen and examined at bedside. Feeling markedly better. No more dysuria. Wants to get better. Objective - Vital Signs/Intake and Output Vital Signs (last 24 hours): Temp Pulse Resp BP Pulse Ox 99.0 F 109 H 18 104/73 96 05/13/18 06:00 05/13/18 10:16 05/13/18 06:00 05/13/18 10:16 05/13/18 06:00 Intake and Output: 05/13/18 05/13/18 06:59 18:59 Intake Total 240 Balance 240 - Medications Medications: Current Medications Acetaminophen (Tylenol 325mg Tab) 650 mg PO Q4H PRN PRN Reason: Fever >100.4 F Last Admin: 05/12/18 17:21 Dose: 650 mg Aspirin (Aspirin Chewable) 81 mg PO DAILY [facility] Last Admin: 05/13/18 10:16 Dose: 81 mg Atorvastatin Calcium (Lipitor) 20 mg PO DIN [facility] Last Admin: 05/12/18 17:21 Dose: 20 mg Famotidine (Pepcid) 40 mg PO HS [facility] Last Admin: 05/12/18 21:44 Dose: 40 mg Glipizide (Glucotrol) 10 mg PO BID [facility] Last Admin: 05/13/18 10:17 Dose: 10 mg Hydromorphone HCl (Dilaudid) 0.5 mg IVP Q4H PRN PRN Reason: Pain, Mild (1-3) Sodium Chloride (Sodium Chloride 0.9%) 1,000 mls @ 50 mls/hr IV .Q20H [facility] Last Admin: 05/11/18 11:02 Dose: 50 mls/hr Meropenem (Merrem Iv 1 Gm Premix) 1 gm in 50 mls @ 100 mls/hr IVPB Q8 [facility]; Protocol Stop: 05/18/18 14:01 Last Admin: 05/13/18 05:36 Dose: 100 mls/hr Insulin Human Regular (Humulin R Low) 0 units SC ACHS [facility]; Protocol Last Admin: 05/13/18 10:18 Dose: 1 unit Losartan Potassium (Cozaar) 50 mg PO DAILY [facility] Last Admin: 05/13/18 10:16 Dose: 50 mg Metformin HCl (Glucophage) 1,000 mg PO BID [facility] Last Admin: 05/13/18 10:17 Dose: 1,000 mg Non-Formulary Medication (Ertugliflozin Pidolate [Steglatro]) 15 mg PO DAILY [facility] Last Admin: 05/13/18 10:17 Dose: Not Given Ondansetron HCl (Zofran Inj) 4 mg IVP Q6 PRN PRN Reason: Nausea/Vomiting Tamoxifen Citrate (Nolvadex) 20 mg PO DAILY [facility] Last Admin: 05/13/18 10:18 Dose: 20 mg - Labs Labs: 05/13/18 07:30 05/13/18 07:30 - Constitutional Appears: Non-toxic, No Acute Distress - Head Exam Head Exam: ATRAUMATIC - Eye Exam Eye Exam: absent: Scleral icterus - ENT Exam ENT Exam: Mucous Membranes Moist - Neck Exam Neck exam: Positive for: Normal Inspection - Respiratory Exam Respiratory Exam: absent: Rales, Rhonchi, Wheezes - Cardiovascular Exam Cardiovascular Exam: RRR, +S1, +S2 - GI/Abdominal Exam GI & Abdominal Exam: Soft. absent: Tenderness - Extremities Exam Extremities exam: Negative for: calf tenderness, pedal edema - Neurological Exam Neurological exam: Alert, Oriented x4 - Skin Skin Exam: Dry, Warm Assessment and Plan - Assessment and Plan (Free Text) Assessment: 57 year old female with a PMH of HTN, HLD, DM, lumpectomy s/p radiation, obesity who presented for fever, nausea and vomiting and was found to have sepsis. Infectious disease consultation was requested for sepsis. Plan: Sepsis 2/2 urinary tract infection HTN HLD DM Obesity Hx breast CA s/p lumpectomy and radiation Continue meropenem 1g q8h day 3 UCx pending BCx negative 2/2 day 2 HIV pending We will follow with you Patient was seen and examined and case to be discussed with attending physician Thank you for the pleasure of participating in the care of this patient <Javi Chapin - Last Filed: 05/13/18 12:23> Objective - Vital Signs/Intake and Output Vital Signs (last 24 hours): Temp Pulse Resp BP Pulse Ox 99.0 F 109 H 18 104/73 96 05/13/18 06:00 05/13/18 10:16 05/13/18 06:00 05/13/18 10:16 05/13/18 06:00 Intake and Output: 05/13/18 05/13/18 06:59 18:59 Intake Total 240 Balance 240 - Medications Medications: Current Medications Acetaminophen (Tylenol 325mg Tab) 650 mg PO Q4H PRN PRN Reason: Fever >100.4 F Last Admin: 05/12/18 17:21 Dose: 650 mg Aspirin (Aspirin Chewable) 81 mg PO DAILY [facility] Last Admin: 05/13/18 10:16 Dose: 81 mg Atorvastatin Calcium (Lipitor) 20 mg PO DIN [facility] Last Admin: 05/12/18 17:21 Dose: 20 mg Famotidine (Pepcid) 40 mg PO HS [facility] Last Admin: 05/12/18 21:44 Dose: 40 mg Glipizide (Glucotrol) 10 mg PO BID [facility] Last Admin: 05/13/18 10:17 Dose: 10 mg Hydromorphone HCl (Dilaudid) 0.5 mg IVP Q4H PRN PRN Reason: Pain, Mild (1-3) Sodium Chloride (Sodium Chloride 0.9%) 1,000 mls @ 50 mls/hr IV .Q20H [facility] Last Admin: 05/11/18 11:02 Dose: 50 mls/hr Meropenem (Merrem Iv 1 Gm Premix) 1 gm in 50 mls @ 100 mls/hr IVPB Q8 [facility]; Protocol Stop: 05/18/18 14:01 Last Admin: 05/13/18 05:36 Dose: 100 mls/hr Insulin Human Regular (Humulin R Low) 0 units SC ACHS [facility]; Protocol Last Admin: 05/13/18 10:18 Dose: 1 unit Losartan Potassium (Cozaar) 50 mg PO DAILY [facility] Last Admin: 05/13/18 10:16 Dose: 50 mg Metformin HCl (Glucophage) 1,000 mg PO BID [facility] Last Admin: 05/13/18 10:17 Dose: 1,000 mg Non-Formulary Medication (Ertugliflozin Pidolate [Steglatro]) 15 mg PO DAILY [facility] Last Admin: 05/13/18 10:17 Dose: Not Given Ondansetron HCl (Zofran Inj) 4 mg IVP Q6 PRN PRN Reason: Nausea/Vomiting Tamoxifen Citrate (Nolvadex) 20 mg PO DAILY [facility] Last Admin: 05/13/18 10:18 Dose: 20 mg - Labs Labs: 05/13/18 07:30 05/13/18 07:30 Attending/Attestation - Attestation I have personally seen and examined this patient.: Yes I have fully participated in the care of the patient.: Yes I have reviewed all pertinent clinical information, including history, physical exam and plan: Yes
[2018-05-13] MEDS: Sodium Chloride 0.9% 1,000 ML IV SCH (20:00)
--- NOTE | 2018-05-14 00:28 | PN ---
DATE: 05/13/2018 SUBJECTIVE: The patient is a 57-year-old female. The patient was seen and examined at the bedside on 05/13/2018. Daughter was sitting on the bedside also. No more vaginal spotting. No nausea. No vomiting. No hematuria. No hematochezia. No headache. No dizziness. No chest pain. No palpitations. No fever. No chills. PHYSICAL EXAMINATION: VITAL SIGNS: Temperature 99, pulse 109, respiratory rate 18, blood pressure 104/73, and pulse oximetry 96%. HEENT: Head; normocephalic and atraumatic. Eyes; PERRLA. Extraocular muscles intact. Conjunctivae clear. Nose patent. Mucous membranes moist. NECK: Supple. No carotid bruit, JVD, or thyromegaly. CHEST: Bilaterally symmetrical. HEART: S1 and S2 positive. LUNGS: Clear to auscultation. ABDOMEN: Soft. Bowel sounds present. No organomegaly. EXTREMITIES: No edema. No cyanosis. NEUROLOGICAL: The patient is awake and alert. Moving all four extremities. No focal deficits. MEDICATIONS: Tylenol, aspirin, Lipitor, Pepcid, glipizide, Dilaudid, meropenem, insulin, losartan, metformin, Zofran, and tamoxifen. LABORATORY DATA: White blood cells 8.1, hemoglobin 9.8, hematocrit 30.6, and platelets 247. Sodium 137, potassium 4.4, BUN 11, creatinine 0.7, and glucose 158. ASSESSMENT AND PLAN: Ms. Maria Isabel Flores is a 57-year-old lady with anemia, hypoglycemia, history of hypertension, hypercholesterolemia, diabetes mellitus, lumpectomy, status post radiation, and obesity who came in with fever, nausea, vomiting, and found to have sepsis. Infectious Disease is on the case. The patient has history of obesity. According to Infectious Disease, continue meropenem 1 g 3 tablets for 3 days. Urine culture is still pending. Blood culture is negative. Human immunodeficiency virus is pending. Urine clean catch shows Gram-positive cocci. Human immunodeficiency virus 1 and [address]reactive. CAT scan of abdomen and pelvis done, reviewed by me. History of hysterectomy, bilateral lobulated kidney likely due to chronic reflux, nephropathy 1.9 cm, left adrenal nodule likely an adenoma, Urologist is on the case, Dr. Paramjit Sim. According to him, there is no need of acute urological or surgical intervention. [employer] consult called. Spoke to Dr. Gabrielle Weiss, she will see the patient. Discussion done with the patient and the patient's family. Gastrointestinal and deep venous thrombosis prophylaxes. Repeat labs. We will follow up. Ramya Beebe MD
[2018-05-14] MEDS: Meropenem IV 1 gm in NS 1 GM/50 ML BAG IVPB SCH (05:34)
[2018-05-14 08:57] VITALS: RESP 18; TEMP 98.6; O2SAT 99
[2018-05-14] MEDS: Insulin Reg-LOW-Coverage SC SCH ×2 (09:11→12:20)
[2018-05-14 09:25] VITALS: BP 106/70; PULSE 86
[2018-05-14] MEDS: ERTUGLIFLOZIN PIDOLATE 15 MG PO SCH (09:42)
--- NOTE | 2018-05-14 21:58 | PN ---
DATE: 05/14/2018 SUBJECTIVE: The patient was seen early this morning in room 378, bed 2. No fevers, no chills. No nausea, much improved. PHYSICAL EXAMINATION: VITAL SIGNS: Temperature is 98, blood pressure is 106/70, respiratory rate of 16. HEENT: Unremarkable. NECK: Supple. LUNGS: Have decreased breath sounds. HEART: Normal S1, S2. ABDOMEN: Soft. LABORATORY EXAMINATION: Reveals the white count is down to 8.1, hemoglobin of 11, creatinine of 0.7. Urinalysis is noted. Serology is noted. Microbiology reveals Strep sanguinis group, ceftriaxone sensitive, penicillin sensitive, vancomycin sensitive, and blood cultures are negative. ASSESSMENT AND PLAN: This is a 57-year-old female who was seen early this morning with a history of diabetes, lumpectomy and radiation, obesity, hypertension, admitted with sepsis with Streptococcus sanguinis urinary tract infection and cystitis. We will complete with p.o. Levaquin. The patient is for discharge today. Javi Chapin MD
[2018-05-15] MEDS ORDERED: levoFLOXacin 500 MG TAB PO SCH (10:00)
== END 2018-05-14 14:49 | disposition home or self-care (01) | DRG 720 ==
LOC: ED 17:11 → ERH 20:22 → 3RSO 23:29
PROVIDERS: ADMIT Internal Medicine; ATTEND Internal Medicine
DX: A41.9 Sepsis, unspecified organism (principal); I10 Essential (primary) hypertension; N30.90 Cystitis, unspecified without hematuria; D50.9 Iron deficiency anemia, unspecified; E11.9 Type 2 diabetes mellitus without complications; E78.5 Hyperlipidemia, unspecified; E66.9 Obesity, unspecified; D72.819 Decreased white blood cell count, unspecified; E78.00 Pure hypercholesterolemia, unspecified; K21.9 Gastro-esophageal reflux disease without esophagitis; Z79.82 Long term (current) use of aspirin; Z85.3 Personal history of malignant neoplasm of breast; Z90.710 Acquired absence of both cervix and uterus; Z92.3 Personal history of irradiation; Z88.0 Allergy status to penicillin; Z91.018 Allergy to other foods; Z68.33 Body mass index [BMI] 33.0-33.9, adult; B95.4 Other streptococcus as the cause of diseases classified elsewhere